=== PATIENT | female | born 1960 | race Caucasian/White ===

== ENCOUNTER 2024-10-17 10:18 | Day surgery (SDC) | payer MEDICARE, OTHER ==
--- NOTE | 2024-10-17 07:35 | P.GSHP ---
History of Present Illness H&P Date: 10/17/24 Chief Complaint: Renal failure 64-year-old female here for peritoneal dialysis catheter insertion. She was actually last seen in October of last year. Patient has had further decline in her kidney function and requires dialysis at this time. Previous laparoscopic cholecystectomy. No known hernias. Past Medical History Past Medical History: Cancer, CVA/TIA, GERD/Reflux, Hyperlipidemia, Hypertension, Renal Disease, Seizure Disorder, Sleep Apnea/CPAP/BIPAP, Thyroid Disorder Additional Past Medical History / Comment(s): stage 4, kidney disease,. basal cell removed from left ear. stroke 2013- lost peripheral vision. siezure- with illness( vomiting diarrhea) long ago, one time- no meds.wears cpap History of Any Multi-Drug Resistant Organisms: None Reported Past Surgical History: Cholecystectomy Additional Past Surgical History / Comment(s): cataracts removed, repair fx rt wrist. pituatary adenoma removed. Past Anesthesia/Blood Transfusion Reactions: No Reported Reaction Smoking Status: Never smoker - Past Family History Father Family Medical History: COPD Brother(s) Family Medical History: Cancer Additional Family Medical History / Comment(s): leukemia Medications and Allergies Home Medications Medication Instructions Recorded Confirmed Type Areds 2 Eye Vitamin 1 tab PO DAILY 10/15/24 10/15/24 History Atorvastatin [Lipitor] 40 mg PO HS 10/15/24 10/15/24 History Calcium Acetate 667 mg PO DAILY 10/15/24 10/15/24 History Citalopram Hydrobromide 40 mg PO DAILY 10/15/24 10/15/24 History [Citalopram HBr] Clopidogrel Bisulfate [Clopidogrel] 75 mg PO DAILY 10/15/24 10/16/24 History Darbepoetin Juvencio [Aranesp] 100 mcg SQ Q14D 10/15/24 10/15/24 History Dialyvite 800 mg PO DAILY 10/15/24 10/15/24 History Ergocalciferol [Vitamin D2 (1250 1,250 mcg PO Q30D 10/15/24 10/15/24 History Mcg = 73345 Iu)] Famotidine 20 mg PO HS PRN 10/15/24 10/15/24 History Febuxostat [Uloric] 40 mg PO DAILY 10/15/24 10/15/24 History Ketorolac 0.5% Ophth Soln [Acular 1 drops RIGHT EYE BID 10/15/24 10/15/24 History 0.5%] Levothyroxine Sodium 88 mcg PO DAILY 10/15/24 10/15/24 History NIFEdipine [Adalat CC] 30 mg PO BID 10/15/24 10/15/24 History Prednisolone Acetate/Pf 1 drop RIGHT EYE BID 10/15/24 10/15/24 History [Prednisolone Acet 1% Eye Drop] Sodium Bicarbonate Tab 650 mg PO BID 10/15/24 10/15/24 History Sodium Zirconium Cyclosilicate 10 gm PO DIRECTED 10/15/24 10/15/24 History [Lokelma] Unk Iron 1 tab PO DIRECTED 10/15/24 10/15/24 History calcitrioL 0.25 mcg PO Q3D 10/15/24 10/15/24 History carvediloL [Coreg] 6.25 mg PO BID 10/15/24 10/15/24 History Allergies Allergy/AdvReac Type Severity Reaction Status Date / Time azathioprine [From Imuran] AdvReac diarrhea, Verified 10/15/24 12:27 wiped her out mycophenolate mofetil AdvReac diarrhea, Verified 10/15/24 12:27 [From CellCept] wiped out Surgical - Exam Physical exam: General: Well-developed, well-nourished HEENT: Normocephalic, sclerae nonicteric Abdomen: Nontender, nondistended Extremities: No edema Neuro: Alert and oriented Assessment and Plan (1) Renal failure Narrative/Plan: 64-year-old female with renal failure. Will proceed with peritoneal dialysis catheter insertion. Risks of bleeding, infection, scarring, poor function, peritonitis, bowel injury, fluid leak, hernia reviewed. She understands and wishes to proceed. Status: Acute Code(s): N19 - UNSPECIFIED KIDNEY FAILURE SNOMED Code(s): 07997355
[~2024-10-17 10:18] MED LIST: LACTATED RINGERS 1,000 ML IV SCH; MIDAZOLAM 2 MG/2 ML VIAL IV PRN; SCOPOLAMINE 1 MG/72 HR PATCH TRANSDERM ONE
[2024-10-17] MEDS: IV FLUID CONTINUATION 500 ML IV ONE (10:36)
[2024-10-17] MEDS: ACETAMINOPHEN TAB 500 MG TAB PO PRN (10:55)
[2024-10-17] MEDS: ONDANSETRON 4 MG/2 ML VIAL IVP ONE (10:55)
[2024-10-17] MEDS: HEPARIN SODIUM,PORCINE 5,000 UNIT/ML 1 ML VIAL SQ PRN (10:56)
[2024-10-17] MEDS: DEXAMETHASONE SOD PHOSPHATE 4 MG/ML 1 ML VIAL IV ONE (10:56)
[2024-10-17] MEDS: LIDOCAINE 1% (10MG/ML) FOR IV START INTRADERMA PRN (10:56)
[2024-10-17] MEDS ORDERED: MIDAZOLAM 2 MG/2 ML VIAL ONE (11:00)
[2024-10-17] MEDS ORDERED: GLYCOPYRROLATE 0.2 MG/ML 2 ML VIAL ONE (11:00)
[2024-10-17] MEDS ORDERED: NEOSTIGMINE 1 MG/ML 10 ML VIAL ONE (11:00)
[2024-10-17] MEDS ORDERED: LIDOCAINE 1% INJ 10MG/ML (20 ML MDV) ONE (11:00)
[2024-10-17] MEDS ORDERED: fentaNYL (PF) 50 MCG/ML 2 ML AMP ONE (11:00)
[2024-10-17] MEDS ORDERED: ROCURONIUM 10 MG/ML (5 ML VIAL) IV ONE (11:00)
[2024-10-17] MEDS ORDERED: PROPOFOL 10 MG/ML 20 ML VIAL IV ONE (11:00)
[2024-10-17 11:05] LABS: HCT 34.8 % (37.2-46.3); HGB 11.2 g/dL (12.0-15.0); MCH 26.5 pg (27.0-32.0); MCHC 32.2 g/dL (32.0-37.0); MCV 82.5 fL (80.0-97.0); Mean Platelet Volume 9.7 fL (9.5-12.2); Platelet Count 203 10*3/uL (140-440); RBC 4.22 10*6/uL (4.10-5.20); RDW 17.4 % (11.5-14.5)
[2024-10-17] MEDS: ceFAZolin 2 GM in DEXTROSE 5% IN WATER 50 ML IVPB PRN (11:05)
[2024-10-17] MEDS: BUPIVACAINE (PF) 0.25% 30 ML VIAL SQ ONE ×2 (11:25)
[2024-10-17] MEDS ORDERED: NALOXONE 0.4 MG/ML 1 ML VIAL IV PRN (11:54)
[2024-10-17] MEDS ORDERED: ACETAMINOPHEN TAB 325 MG TAB PO PRN (11:54)
--- NOTE | 2024-10-17 11:57 | P.OP ---
Date of Procedure: 10/17/24 Procedure(s) Performed: PREOPERATIVE DIAGNOSIS: Renal failure POSTOPERATIVE DIAGNOSIS: Same PROCEDURE: Peritoneal dialysis catheter insertion SURGEON: Federica EBL: Minimal ANESTHESIA: Sedation plus local COMPLICATIONS: None OPERATIVE PROCEDURE: The patient was placed in the operative table in the supine position. The abdomen was prepped and draped in usual sterile fashion. A small vertical incision was made in the left periumbilical location. Dissection down through the subcutaneous tissues took place using electrocautery. The anterior rectus was divided vertically using the scalpel. The rectus was bluntly. The posterior rectus was visualized. An 0 Vicryl pursestring was placed. A small opening in the posterior rectus fascia and peritoneum took place using a Metzenbaum scissors. There were no adhesions to the suture that was placed. The pigtail catheter was advanced into the pelvis over a stylette. No resistance was met. The inner cuff was secured to the fascia using the 0 Vicryl pursestring that was placed. The catheter was tunneled to an exit site in the left lateral lower quadrant. The catheter was connected to the 1 L bag of saline and approximated 800 mL of saline was easily introduced into the peritoneal cavity. The fluid was then allowed to evacuate. The majority of the fluid was returned. The anterior rectus fascia was then reapproximated using a running 0 Vicryl stitch. The subcutaneous tissues reprepped using 3-0 Vicryl sutures and the skin using 4-0 Monocryl sutures. The outpatient dialysis adapter was applied to the end of the catheter. Sterile dressings were then applied after skin glue was placed over the incision. DISPOSITION: Stable to recovery room
[2024-10-17 12:05] VITALS: TEMP 97.1
[2024-10-17 12:16] VITALS: RESP 16
[2024-10-17] MEDS: HYDROmorphone 0.5 MG/0.5 ML SYRINGE IVP PRN (12:23)
[2024-10-17] MEDS: traMADol 50 MG TAB PO PRN (13:09)
[2024-10-17 14:15] VITALS: BP 178/84; PULSE 64
== END 2024-10-17 14:41 | disposition home or self-care (01) ==
LOC: OR 10:18
PROVIDERS: ATTEND Surgery
DX: N17.9 Acute kidney failure, unspecified (principal); I10 Essential (primary) hypertension; E78.5 Hyperlipidemia, unspecified; G47.33 Obstructive sleep apnea (adult) (pediatric); G40.909 Epilepsy, unspecified, not intractable, without status epilepticus; Z86.73 Personal history of transient ischemic attack (TIA), and cerebral infarction without residual deficits; Z90.49 Acquired absence of other specified parts of digestive tract; Z99.2 Dependence on renal dialysis; Z88.8 Allergy status to other drugs, medicaments and biological substances; Z79.02 Long term (current) use of antithrombotics/antiplatelets; Z79.1 Long term (current) use of non-steroidal anti-inflammatories (NSAID); Z79.890 Hormone replacement therapy; Z79.899 Other long term (current) drug therapy
CPT/HCPCS: 85027; 49421; C1752; J2250; J1644; J1100; J2710; J0690; J2405; J2003; J3010; J2704; J1171; J0665; J1596

== ENCOUNTER 2024-10-18 16:33 | Observation (INO) | payer MEDICARE ==
--- NOTE | 2024-10-18 17:33 | ED ---
Recheck HPI - General Chief Complaint: Recheck/Abnormal Lab/Rx Stated Complaint: Dialysis port issues Time Seen by Provider: 10/18/24 16:46 Source: patient, RN notes reviewed, old records reviewed Mode of arrival: ambulatory Limitations: no limitations - History of Present Illness Initial Comments: This is a 64 female excepted in transfer from outside facility patient was transferred to us for bleeding port, patient recently had peritoneal dialysis po rt placed and has had significant bleeding since initial discharge. Patient states he has not stopped bleeding since discharge and has been leaking through bandage on her pants and getting significantly worse. Patient is on Plavix no other blood thinners. No symptoms of lightheadedness dizziness or weakness MD Complaint: wound re-check -: days(s) Returns Today for: wound recheck Symptoms Since Prior Visit: no new symptoms Context: planned re-check Associated Symptoms: none Treatments Prior to Arrival: dressings, other - Related Data Home Medications Medication Instructions Recorded Confirmed Atorvastatin [Lipitor] 40 mg PO HS 10/15/24 10/18/24 Calcium Acetate 667 mg PO W/SUPPER 10/15/24 10/18/24 Citalopram Hydrobromide 40 mg PO DAILY 10/15/24 10/18/24 [Citalopram HBr] Clopidogrel Bisulfate [Clopidogrel] 75 mg PO DAILY 10/15/24 10/18/24 Darbepoetin Juvencio [Aranesp] 100 mcg SQ Q14D PRN 10/15/24 10/18/24 Dialyvite 800 mg PO DAILY 10/15/24 10/18/24 Ergocalciferol [Vitamin D2 (1250 1,250 mcg PO Q30D 10/15/24 10/18/24 Mcg = 00851 Iu)] Famotidine 20 mg PO HS 10/15/24 10/18/24 Febuxostat [Uloric] 40 mg PO DAILY 10/15/24 10/18/24 Ketorolac 0.5% Ophth Soln [Acular 1 drops RIGHT EYE BID 10/15/24 10/18/24 0.5%] Levothyroxine Sodium 88 mcg PO MOTUWETHFRSA 10/15/24 10/18/24 NIFEdipine [Adalat CC] 30 mg PO BID 10/15/24 10/18/24 Prednisolone Acetate/Pf 1 drop RIGHT EYE BID 10/15/24 10/18/24 [Prednisolone Acet 1% Eye Drop] Sodium Bicarbonate Tab 650 mg PO BID 10/15/24 10/18/24 Sodium Zirconium Cyclosilicate 10 gm PO DAILY 10/15/24 10/18/24 [Lokelma] calcitrioL 0.25 mcg PO MOFR 10/15/24 10/18/24 carvediloL [Coreg] 6.25 mg PO BID 10/15/24 10/18/24 Levothyroxine Sodium [Synthroid] 176 mcg PO BERRIOS 10/18/24 10/18/24 Vit C/E/Zn/Coppr/Lutein/Zeaxan 1 cap PO BID 10/18/24 10/18/24 [Preservision Areds 2 Softgel] traMADol HCl [Ultram] 50 mg PO DIRECTED PRN 10/18/24 10/18/24 Allergies Allergy/AdvReac Type Severity Reaction Status Date / Time azathioprine [From Imuran] AdvReac diarrhea, Verified 10/18/24 18:18 wiped her out mycophenolate mofetil AdvReac diarrhea, Verified 10/18/24 18:18 [From CellCept] wiped out Review of Systems ROS Statement: Those systems with pertinent positive or pertinent negative responses have been documented in the HPI. ROS Other: All systems not noted in ROS Statement are negative. Past Medical History Past Medical History: Cancer, CVA/TIA, GERD/Reflux, Hyperlipidemia, Hypertension, Renal Disease, Seizure Disorder, Sleep Apnea/CPAP/BIPAP, Thyroid Disorder Additional Past Medical History / Comment(s): stage 4, kidney disease,. basal cell removed from left ear. stroke 2013- lost peripheral vision. siezure- with illness( vomiting diarrhea) long ago, one time- no meds.wears cpap History of Any Multi-Drug Resistant Organisms: None Reported Past Surgical History: Cholecystectomy Additional Past Surgical History / Comment(s): cataracts removed, repair fx rt wrist. pituatary adenoma removed. Past Anesthesia/Blood Transfusion Reactions: No Reported Reaction Past Psychological History: Depression Smoking Status: Never smoker Past Alcohol Use History: None Reported Past Drug Use History: None Reported - Past Family History Father Family Medical History: COPD Brother(s) Family Medical History: Cancer Additional Family Medical History / Comment(s): leukemia General Exam Limitations: no limitations General appearance: alert, in no apparent distress Head exam: Present: atraumatic, normocephalic, normal inspection Eye exam: Present: normal appearance, PERRL, EOMI. Absent: scleral icterus, conjunctival injection, periorbital swelling ENT exam: Present: normal exam, mucous membranes moist Neck exam: Present: normal inspection. Absent: tenderness, meningismus, lymphadenopathy Respiratory exam: Present: normal lung sounds bilaterally. Absent: respiratory distress, wheezes, rales, rhonchi, stridor Cardiovascular Exam: Present: regular rate, normal rhythm, normal heart sounds. Absent: systolic murmur, diastolic murmur, rubs, gallop, clicks GI/Abdominal exam: Present: soft, normal bowel sounds. Absent: distended, tenderness, guarding, rebound, rigid Extremities exam: Present: normal inspection, full ROM, normal capillary refill. Absent: tenderness, pedal edema, joint swelling, calf tenderness Back exam: Present: normal inspection Neurological exam: Present: alert, oriented X3, CN II-XII intact Psychiatric exam: Present: normal affect, normal mood Skin exam: Present: warm, dry, intact, normal color. Absent: rash Course Vital Signs 10/18/24 16:36 Temperature 97.8 F Pulse Rate 72 Respiratory 18 Rate Blood Pressure 129/71 O2 Sat by Pulse 99 Oximetry - Reevaluation(s) Reevaluation #1: 10/18/24 19:53 Medical records reviewed Reevaluation #2: 10/18/24 19:53 Banding is changed with persistent leaking from surgical site Reevaluation #3: 10/18/24 19:53 Patient informed of results questions answered Reevaluation #4: Was pt. sent in by a medical professional or institution (, PA, LIQUEFIED NATURAL GAS OPERATOR, urgent care, hospital, or [place] health care facility...) When possible be specific @ -no Did you speak to anyone other than the patient for history (EMS, parent, family, police, friend...)? What history was obtained from this source @ -no Did you review nursing and triage notes (agree or disagree)? Why? @ -agree Are old charts reviewed (outside hosp., previous admission, EMS record, old EKG, old radiological studies, urgent care reports/EKG's, [place] health care facility records)? Report findings @ -yes Differential Diagnosis (chest pain, altered mental status, abdominal pain women, abdominal pain men, vaginal bleeding, weakness, fever, dyspnea, syncope, headache, dizziness, GI bleed, back pain, seizure, CVA, palpatations, mental he alth, musculoskeletal)? @ -prior EKG interpreted by me (3pts min.). @ -yes X-rays interpreted by me (1pt min.). @ -yes negative for acute disease CT interpreted by me (1pt min.). @ -no U/S interpreted by me (1pt. min.). @ -no What testing was considered but not performed or refused? (CT, X-rays, U/S, labs)? Why? @ -none What meds were considered but not given or refused? Why? @ -none Did you discuss the management of the patient with other professionals (professionals i.e. , PA, LIQUEFIED NATURAL GAS OPERATOR, lab, RT, psych nurse, web content & social media manager, voip engineer, teacher, compliance review officer, human services case manager)? Give summary @ -no Was smoking cessation discussed for >3mins.? @ -no Was critical care preformed (if so, how long)? @ -no Were there social determinants of health that impacted care today? How? (Homelessness, low income, unemployed, alcoholism, drug addiction, transportation, low edu. Level, literacy, decrease access to med. care, residential, rehab)? @ -none Was there de-escalation of care discussed even if they declined (Discuss DNR or withdrawal of care, Hospice)? DNR status @ -no What co-morbidities impacted this encounter? (DM, HTN, Smoking, COPD, CAD, Cancer, CVA, ARF, Chemo, Hep., AIDS, mental health diagnosis, sleep apnea, morbid obesity)? @ -none Was patient admitted / discharged? Hospital course, mention meds given and route, prescriptions, significant lab abnormalities, going to OR and other pe rtinent info. @ - Undiagnosed new problem with uncertain prognosis? @ -no Drug Therapy requiring intensive monitoring for toxicity (Heparin, Nitro, Insulin, Cardizem)? @ -no Were any procedures done? @ -no Diagnosis/symptom? @ - Acute, or Chronic, or Acute on Chronic? @ -Acute Uncomplicated (without systemic symptoms) or Complicated (systemic symptoms)? @ -Complicated Side effects of treatment? @ -no Exacerbation, Progression, or Severe Exacerbation? @ -exacerbation Poses a threat to life or bodily function? How? (Chest pain, USA, CT, pneumonia, PE, COPD, DKA, ARF, appy, cholecystitis, CVA, Diverticulitis, Homicidal, Suicidal, threat to staff... and all critical care pts) @ -yes - Consultations Consultation #1: Spoke with [facility] who agrees to admit this patient Medical Decision Making - Medical Decision Making 64 female will be admitted for postoperative bleeding, dressing bandaged and clean, hemoglobin able for patient's normal - Lab Data Result diagrams: 10/18/24 18:42 10/18/24 18:42 Disposition Clinical Impression: Postoperative complication Disposition: ADMITTED IP TO THIS [facility] Condition: Fair Is patient prescribed a controlled substance at d/c from ED?: No Time of Disposition: 18:00
[2024-10-18] MEDS ORDERED: NALOXONE 0.4 MG/ML 1 ML VIAL IV PRN (18:18)
[2024-10-18] MEDS ORDERED: MORPHINE SULFATE 4 MG/ML SYRINGE IV PRN (18:18)
[2024-10-18] MEDS ORDERED: ONDANSETRON 4 MG/2 ML VIAL IVP PRN (18:18)
[2024-10-18] MEDS: SODIUM CHLORIDE 0.9% 1,000 ML IV SCH (18:46)
[2024-10-18 18:54] LABS: Basophils # (A) 0.03 10*3/uL (0.00-0.10); Basophils % (A) 0.3 %; Eosinophils # (A) 0.07 10*3/uL (0.04-0.35); Eosinophils % (A) 0.6 %; HCT 35.4 % (37.2-46.3); HGB 11.2 g/dL (12.0-15.0); Lymphocytes # (A) 1.59 10*3/uL (0.90-5.00); MCHC 31.6 g/dL (32.0-37.0); MCV 82.3 fL (80.0-97.0); Mean Platelet Volume 9.4 fL (9.5-12.2); Monocytes # (A) 1.01 10*3/uL (0.20-1.00); Monocytes % (A) 8.9 %; Neutrophils # (A) 8.63 10*3/uL (1.80-7.70); Neutrophils % (A) 75.9 %; Platelet Count 211 10*3/uL (140-440); RDW 17.7 % (11.5-14.5); WBC 11.36 10*3/uL (4.50-10.00)
[2024-10-18 19:09] LABS: Prothrombin Time 11.2 sec (10.0-12.5)
[2024-10-18 19:10] LABS: Partial Thromboplastin Time 21.2 sec (22.0-30.0)
[2024-10-18 19:11] LABS: ALT 14 U/L (4-34); AST 32 U/L (14-36); African American GFR (CKD) 12 (>60 ml/min/1.73 sqM); Albumin 4.2 g/dL (3.5-5.0); Albumin/Globulin Ratio 1.7; Alkaline Phosphatase 60 U/L (38-126); Anion Gap 15 mmol/L; Calcium 10.1 mg/dL (8.4-10.2); Carbon Dioxide 19 mmol/L (22-30); Chloride 105 mmol/L (98-107); Globulin 2.5 g/dL; Glucose 102 mg/dL (74-99); Magnesium 2.4 mg/dL (1.6-2.3); Non-African American GFR(CKD) 11 (>60 ml/min/1.73 sqM); Phosphorus 6.9 mg/dL (2.5-4.5); Potassium 4.7 mmol/L (3.5-5.1); Sodium 139 mmol/L (137-145); Total Bilirubin 0.3 mg/dL (0.2-1.3); Total Protein 6.7 g/dL (6.3-8.2)
[2024-10-18 19:12] LABS: Blood Urea Nitrogen 114 mg/dL (7-17)
[2024-10-19 09:55] LABS: HCT 32.4 % (37.2-46.3); HGB 9.7 g/dL (12.0-15.0); MCH 25.5 pg (27.0-32.0); MCHC 29.9 g/dL (32.0-37.0); MCV 85.3 FL (80.0-97.0); Mean Platelet Volume 10.4 FL (9.5-12.2); NRBC Per 100 WBC 0 X 10*3/uL (0.00-0.01); Platelet Count 192 X 10*3/uL (140-440); RDW 18.1 % (11.5-14.5); WBC 12.23 X 10*3/uL (4.50-10.00)
[2024-10-19 09:56] LABS: Basophils # (A) 0.03 X 10*3/uL (0.00-0.10); Basophils % (A) 0.2 %; Eosinophils # (A) 0.22 X 10*3/uL (0.04-0.35); Eosinophils % (A) 1.8 %; Lymphocytes % (A) 14.7 %; Monocytes # (A) 1.17 X 10*3/uL (0.20-1.00); Monocytes % (A) 9.6 %; Neutrophils # (A) 8.96 X 10*3/uL (1.80-7.70); Neutrophils % (A) 73.3 %
[2024-10-19 09:59] LABS: ALT 11 U/L (8-44); AST 25 U/L (13-35); Albumin 3.8 g/dL (3.8-4.9); Alkaline Phosphatase 51 U/L (41-126); BUN/Creat Ratio 25.12 Ratio (12.00-20.00); Calcium 9.2 mg/dL (8.7-10.3); Carbon Dioxide 17.2 mmol/L (21.6-31.8); Chloride 109 mmol/L (96-109); Globulin 1.9 g/dL (1.6-3.3); Glucose 83 mg/dL (70-110); Magnesium 2.2 mg/dL (1.5-2.4); Phosphorus 5.7 mg/dL (2.4-5.1); Potassium 5.1 mmol/L (3.5-5.5); Sodium 141 mmol/L (135-145); Total Bilirubin <0.2 mg/dL (0.3-1.2); Total Protein 5.7 g/dL (6.2-8.2)
--- NOTE | 2024-10-19 12:01 | P.GSCN ---
History of Present Illness Consult date: 10/19/24 Reason for Consult: Fluid leak from peritoneal dialysis catheter History of present illness: Patient apparently came in through the ER last night. I was not notified until this morning. Patient had issues with serosanguineous drainage around the catheter exit site getting through the bandage onto her clothing. Feels well today. Less drainage over night. No fevers. Catheter was just placed on Sunday. Review of Systems The patient denies any acute changes in vision or hearing, no dysphagia or odynophagia, no chest pain or shortness of breath, no dysuria or hematuria, no headache, no runny nose, no rectal bleeding or melena, no unexplained weight loss Past Medical History Past Medical History: Cancer, CVA/TIA, GERD/Reflux, Hyperlipidemia, Hypertension, Renal Disease, Seizure Disorder, Sleep Apnea/CPAP/BIPAP, Thyroid Disorder Additional Past Medical History / Comment(s): stage 4, kidney disease,. basal cell removed from left ear. stroke 2013- lost peripheral vision. siezure- with illness( vomiting diarrhea) long ago, one time- no meds.wears cpap History of Any Multi-Drug Resistant Organisms: None Reported Past Surgical History: Cholecystectomy Additional Past Surgical History / Comment(s): cataracts removed, repair fx rt wrist. pituatary adenoma removed. Past Anesthesia/Blood Transfusion Reactions: No Reported Reaction Past Psychological History: Depression Smoking Status: Never smoker Past Alcohol Use History: None Reported Past Drug Use History: None Reported - Past Family History Father Family Medical History: COPD Brother(s) Family Medical History: Cancer Additional Family Medical History / Comment(s): leukemia Medications and Allergies Home Medications Medication Instructions Recorded Confirmed Type Atorvastatin [Lipitor] 40 mg PO HS 10/15/24 10/18/24 History Calcium Acetate 667 mg PO W/SUPPER 10/15/24 10/18/24 History Citalopram Hydrobromide 40 mg PO DAILY 10/15/24 10/18/24 History [Citalopram HBr] Clopidogrel Bisulfate [Clopidogrel] 75 mg PO DAILY 10/15/24 10/18/24 History Darbepoetin Juvencio [Aranesp] 100 mcg SQ Q14D PRN 10/15/24 10/18/24 History Dialyvite 800 mg PO DAILY 10/15/24 10/18/24 History Ergocalciferol [Vitamin D2 (1250 1,250 mcg PO Q30D 10/15/24 10/18/24 History Mcg = 09164 Iu)] Famotidine 20 mg PO HS 10/15/24 10/18/24 History Febuxostat [Uloric] 40 mg PO DAILY 10/15/24 10/18/24 History Ketorolac 0.5% Ophth Soln [Acular 1 drops RIGHT EYE BID 10/15/24 10/18/24 History 0.5%] Levothyroxine Sodium 88 mcg PO MOTUWETHFRSA 10/15/24 10/18/24 History NIFEdipine [Adalat CC] 30 mg PO BID 10/15/24 10/18/24 History Prednisolone Acetate/Pf 1 drop RIGHT EYE BID 10/15/24 10/18/24 History [Prednisolone Acet 1% Eye Drop] Sodium Bicarbonate Tab 650 mg PO BID 10/15/24 10/18/24 History Sodium Zirconium Cyclosilicate 10 gm PO DAILY 10/15/24 10/18/24 History [Lokelma] calcitrioL 0.25 mcg PO MOFR 10/15/24 10/18/24 History carvediloL [Coreg] 6.25 mg PO BID 10/15/24 10/18/24 History Levothyroxine Sodium [Synthroid] 176 mcg PO BERRIOS 10/18/24 10/18/24 History Vit C/E/Zn/Coppr/Lutein/Zeaxan 1 cap PO BID 10/18/24 10/18/24 History [Preservision Areds 2 Softgel] traMADol HCl [Ultram] 50 mg PO DIRECTED PRN 10/18/24 10/18/24 History Allergies Allergy/AdvReac Type Severity Reaction Status Date / Time azathioprine [From Imuran] AdvReac diarrhea, Verified 10/18/24 18:18 wiped her out mycophenolate mofetil AdvReac diarrhea, Verified 10/18/24 18:18 [From CellCept] wiped out Surgical - Exam Vital Signs Temp Pulse Resp BP Pulse Ox 97.8 F 72 18 129/71 99 10/18/24 16:36 10/18/24 16:36 10/18/24 16:36 10/18/24 16:36 10/18/24 16:36 Physical exam: General: Well-developed, well-nourished HEENT: Normocephalic, sclerae nonicteric Abdomen: Mild numbness at incision site and catheter exit site, no erythema, small serosanguineous drainage around catheter exit site, no ecchymosis Extremities: No edema Neuro: Alert and oriented Results - Labs 10/19/24 03:12 10/19/24 03:12 Abnormal Lab Results - Last 24 Hours (Table) 10/18/24 10/18/24 10/18/24 Range/Units 18:42 18:42 18:45 WBC 11.36 H (4.50-10.00) 10*3/uL RBC (4.10-5.20) X 10*6/uL Hgb 11.2 L (12.0-15.0) g/dL Hct 35.4 L (37.2-46.3) % MCH 26.0 L (27.0-32.0) pg MCHC 31.6 L (32.0-37.0) g/dL RDW 17.7 H (11.5-14.5) % MPV 9.4 L (9.5-12.2) fL Immature Gran # (0.00-0.04) X 10*3/uL Neutrophils # 8.63 H (1.80-7.70) 10*3/uL Monocytes # 1.01 H (0.20-1.00) 10*3/uL APTT 21.2 L (22.0-30.0) sec Carbon Dioxide 19 L (22-30) mmol/L Anion Gap (4.00-12.00) mmol/L BUN 114 H* (7-17) mg/dL Creatinine 4.25 H (0.52-1.04) mg/dL Est GFR (CKD-EPI) (>=60) BUN/Creatinine Ratio (12.00-20.00) Ratio Glucose 102 H (74-99) mg/dL Phosphorus 6.9 H (2.5-4.5) mg/dL Magnesium 2.4 H (1.6-2.3) mg/dL Total Bilirubin (0.3-1.2) mg/dL Total Protein (6.2-8.2) g/dL 10/19/24 10/19/24 Range/Units 03:12 03:12 WBC 12.23 H (4.50-10.00) 10*3/uL RBC 3.80 L (4.10-5.20) X 10*6/uL Hgb 9.7 L (12.0-15.0) g/dL Hct 32.4 L (37.2-46.3) % MCH 25.5 L (27.0-32.0) pg MCHC 29.9 L (32.0-37.0) g/dL RDW 18.1 H (11.5-14.5) % MPV (9.5-12.2) fL Immature Gran # 0.05 H (0.00-0.04) X 10*3/uL Neutrophils # 8.96 H (1.80-7.70) 10*3/uL Monocytes # 1.17 H (0.20-1.00) 10*3/uL APTT (22.0-30.0) sec Carbon Dioxide 17.2 L (22-30) mmol/L Anion Gap 14.80 H (4.00-12.00) mmol/L BUN 108.0 H (7-17) mg/dL Creatinine 4.3 H (0.52-1.04) mg/dL Est GFR (CKD-EPI) 11 L (>=60) BUN/Creatinine Ratio 25.12 H (12.00-20.00) Ratio Glucose (74-99) mg/dL Phosphorus 5.7 H (2.5-4.5) mg/dL Magnesium (1.6-2.3) mg/dL Total Bilirubin <0.2 L (0.3-1.2) mg/dL Total Protein 5.7 L (6.2-8.2) g/dL Diabetes panel 10/18/24 10/19/24 Range/Units 18:42 03:12 Sodium 139 141 (137-145) mmol/L Potassium 4.7 5.1 (3.5-5.1) mmol/L Chloride 105 109 (98-107) mmol/L Carbon Dioxide 19 L 17.2 L (22-30) mmol/L BUN 114 H* 108.0 H (7-17) mg/dL Creatinine 4.25 H 4.3 H (0.52-1.04) mg/dL Glucose 102 H 83 (74-99) mg/dL Calcium 10.1 9.2 (8.4-10.2) mg/dL AST 32 25 (14-36) U/L ALT 14 11 (4-34) U/L Alkaline Phosphatase 60 51 (38-126) U/L Total Protein 6.7 5.7 L (6.3-8.2) g/dL Albumin 4.2 3.8 (3.5-5.0) g/dL Calcium panel 10/18/24 10/19/24 Range/Units 18:42 03:12 Calcium 10.1 9.2 (8.4-10.2) mg/dL Phosphorus 6.9 H 5.7 H (2.5-4.5) mg/dL Albumin 4.2 3.8 (3.5-5.0) g/dL Pituitary panel 10/18/24 10/19/24 Range/Units 18:42 03:12 Sodium 139 141 (137-145) mmol/L Potassium 4.7 5.1 (3.5-5.1) mmol/L Chloride 105 109 (98-107) mmol/L Carbon Dioxide 19 L 17.2 L (22-30) mmol/L BUN 114 H* 108.0 H (7-17) mg/dL Creatinine 4.25 H 4.3 H (0.52-1.04) mg/dL Glucose 102 H 83 (74-99) mg/dL Calcium 10.1 9.2 (8.4-10.2) mg/dL Adrenal panel 10/18/24 10/19/24 Range/Units 18:42 03:12 Sodium 139 141 (137-145) mmol/L Potassium 4.7 5.1 (3.5-5.1) mmol/L Chloride 105 109 (98-107) mmol/L Carbon Dioxide 19 L 17.2 L (22-30) mmol/L BUN 114 H* 108.0 H (7-17) mg/dL Creatinine 4.25 H 4.3 H (0.52-1.04) mg/dL Glucose 102 H 83 (74-99) mg/dL Calcium 10.1 9.2 (8.4-10.2) mg/dL Total Bilirubin 0.3 <0.2 L (0.2-1.3) mg/dL AST 32 25 (14-36) U/L ALT 14 11 (4-34) U/L Alkaline Phosphatase 60 51 (38-126) U/L Total Protein 6.7 5.7 L (6.3-8.2) g/dL Albumin 4.2 3.8 (3.5-5.0) g/dL Assessment and Plan (1) Renal failure Narrative/Plan: 64-year-old female with peritoneal dialysis fluid leakage around catheter exit site. This is likely mostly related to intraperitoneal saline that was used at the time of surgery not having fully evacuated and now coming along the catheter tract. Continue changing dressings as needed. This was replaced at the bedside. If patient doing well later today with minimal drainage would be okay with discharge. Otherwise we will reassess tomorrow. Current Visit: No Status: Acute Code(s): N19 - UNSPECIFIED KIDNEY FAILURE SNOMED Code(s): 89917813
[2024-10-19] MEDS: KETOROLAC 0.5% OPHTH DROPS 5 ML BTL RIGHT EYE SCH (12:55)
[2024-10-19] MEDS: SODIUM ZIRCONIUM CYCLOSILICATE 10 GM PACKET PO SCH (12:55)
[2024-10-19] MEDS: prednisoLONE ACETATE 1% OPHTH DROPS 5 ML BTL RIGHT EYE SCH (12:55)
[2024-10-19] MEDS: CITALOPRAM HYDROBROMIDE 20 MG TAB PO SCH (12:56)
[2024-10-19] MEDS: LEVOTHYROXINE 88 MCG TAB PO SCH (12:56)
[2024-10-19] MEDS: SODIUM BICARBONATE TAB 650 MG TAB PO SCH (12:56)
[2024-10-19] MEDS: allopurinoL 100 MG TAB PO SCH (12:56)
[2024-10-19] MEDS: NIFEdipine XL 30 MG TAB.ER.24 PO SCH (12:57)
[2024-10-19] MEDS: carvediloL 6.25 MG TAB PO SCH (12:57)
[2024-10-19] MEDS: CALCIUM ACETATE 667 MG TAB PO SCH (16:38)
--- NOTE | 2024-10-19 20:15 | P.HPIM ---
History of Present Illness H&P Date: 10/19/24 Chief Complaint: Bleeding from the PD catheter site Very pleasant 64-year-old patient who follows with Dr. Roderick Lynn. Chronic medical conditions include GERD, hyperlipidemia, hypertension, chronic kidney disease, seizure disorder, obstructive sleep apnea, hypothyroid. Had a stroke in 2013 and lost peripheral vision. Does wear CPAP. On October 17 patient underwent peritoneal dialysis catheter placement with Dr. Stallworth.. This was on a Sunday. The following day she started noticing blood oozing around the site. Finally decided to come in. Initially encountered [facility]. Did lose some significant amount of blood. Earlier today Dr. Stallworth put a new dressing and a binder across. Denies any dizziness lightheadedness. Appetite is fair. Does make urine. Review of systems: GEN.: Slightly tired EYES: None HEENT: None NECK: None RESPIRATORY: None CARDIOVASCULAR: None GASTROINTESTINAL: None GENITOURINARY: None MUSCULOSKELETAL: Some joint pains LYMPHATICS: None HEMATOLOGICAL: As above e PSYCHIATRY: None NEUROLOGICAL: None Social history: Non-smoker. No alcohol. . Lives alone Physical examination: VITAL SIGNS: 98.6, 77, 14, 171 x 77, 98% room air GENERAL: BMI 26.1, sitting up in chair awake not in distress. EYES: Pupils equal. Conjunctiva whitney l. HEENT: External appearance of nose and ears normal, oral cavity grossly normal. NECK: JVD not raised; masses not palpable. HEART: First and second heart sounds are normal; no edema. LUNGS: Respiratory rate normal; clear to auscultation. ABDOMEN: [Dressing at the PD catheter site. With the binder in place. PSYCH: Alert and oriented x3; mood and affect whitney l. MUSCULOSKELETAL:No Clubbing/cyanosis;muscles-grossly intact. OA NEUROLOGICAL: Cranial nerves grossly intact; no facial asymmetry, power and sensation grossly intact. LYMPHATICS: No lymph nodes palpable in the axilla and neck INVESTIGATIONS, reviewed in the clinical context: October 19, 2024: White count 12.2 hemoglobin 9.7 platelets 192 sodium 141 potassium 5.1 BUN 108 creatinine 4.3 October 18: Hemoglobin 11.2 platelets 211 October 17: Hemoglobin 11.2 Assessment plan: - Acute bleeding locally at the site of peritoneal dialysis catheter that was placed on October [address] Stallworth. Note patient is on Coumadin but her INR was only 1. Pressure dressing around the PD catheter site. With abdominal binder per Dr. Stallworth. - Acute blood loss anemia from PD catheter site. Hemoglobin was 11.2 dropped to 9.7. IV iron. Follow H&H - CKD stage IV - Essential hypertension Coreg nifedipine - Depression Celexa 40 mg a day - Hypothyroid Synthroid - Chronic metabolic acidosis from underlying kidney disease Sodium bicarbonate - Hyperlipidemia Lipitor - Obstructive sleep apnea Uses CPAP Will watch the patient overnight as she has had significant bleeding. Repeat CBC in the morning. Give IV iron. Discussed with patient Past Medical History Past Medical History: Cancer, CVA/TIA, GERD/Reflux, Hyperlipidemia, Hypertension, Renal Disease, Seizure Disorder, Sleep Apnea/CPAP/BIPAP, Thyroid Disorder Additional Past Medical History / Comment(s): stage 4, kidney disease,. basal cell removed from left ear. stroke 2013- lost peripheral vision. siezure- with illness( vomiting diarrhea) long ago, one time- no meds.wears cpap History of Any Multi-Drug Resistant Organisms: None Reported Past Surgical History: Cholecystectomy Additional Past Surgical History / Comment(s): cataracts removed, repair fx rt wrist. pituatary adenoma removed. Past Anesthesia/Blood Transfusion Reactions: No Reported Reaction Past Psychological History: Depression Smoking Status: Never smoker Past Alcohol Use History: None Reported Past Drug Use History: None Reported - Past Family History Father Family Medical History: COPD Brother(s) Family Medical History: Cancer Additional Family Medical History / Comment(s): leukemia Medications and Allergies Home Medications Medication Instructions Recorded Confirmed Type Atorvastatin [Lipitor] 40 mg PO HS 10/15/24 10/18/24 History Calcium Acetate 667 mg PO W/SUPPER 10/15/24 10/18/24 History Citalopram Hydrobromide 40 mg PO DAILY 10/15/24 10/18/24 History [Citalopram HBr] Clopidogrel Bisulfate [Clopidogrel] 75 mg PO DAILY 10/15/24 10/18/24 History Darbepoetin Juvencio [Aranesp] 100 mcg SQ Q14D PRN 10/15/24 10/18/24 History Dialyvite 800 mg PO DAILY 10/15/24 10/18/24 History Ergocalciferol [Vitamin D2 (1250 1,250 mcg PO Q30D 10/15/24 10/18/24 History Mcg = 69810 Iu)] Famotidine 20 mg PO HS 10/15/24 10/18/24 History Febuxostat [Uloric] 40 mg PO DAILY 10/15/24 10/18/24 History Ketorolac 0.5% Ophth Soln [Acular 1 drops RIGHT EYE BID 10/15/24 10/18/24 History 0.5%] Levothyroxine Sodium 88 mcg PO MOTUWETHFRSA 10/15/24 10/18/24 History NIFEdipine [Adalat CC] 30 mg PO BID 10/15/24 10/18/24 History Prednisolone Acetate/Pf 1 drop RIGHT EYE BID 10/15/24 10/18/24 History [Prednisolone Acet 1% Eye Drop] Sodium Bicarbonate Tab 650 mg PO BID 10/15/24 10/18/24 History Sodium Zirconium Cyclosilicate 10 gm PO DAILY 10/15/24 10/18/24 History [Lokelma] calcitrioL 0.25 mcg PO MOFR 10/15/24 10/18/24 History carvediloL [Coreg] 6.25 mg PO BID 10/15/24 10/18/24 History Levothyroxine Sodium [Synthroid] 176 mcg PO BERRIOS 10/18/24 10/18/24 History Vit C/E/Zn/Coppr/Lutein/Zeaxan 1 cap PO BID 10/18/24 10/18/24 History [Preservision Areds 2 Softgel] traMADol HCl [Ultram] 50 mg PO DIRECTED PRN 10/18/24 10/18/24 History Allergies Allergy/AdvReac Type Severity Reaction Status Date / Time azathioprine [From Imuran] AdvReac diarrhea, Verified 10/18/24 18:18 wiped her out mycophenolate mofetil AdvReac diarrhea, Verified 10/18/24 18:18 [From CellCept] wiped out Physical Exam Vitals: Vital Signs Temp Pulse Pulse Pulse Resp BP BP 10/19/24 06:45 98.6 F 77 14 171/77 10/19/24 02:00 97.7 F 70 17 10/18/24 21:56 97.9 F 74 18 10/18/24 20:28 78 18 176/83 10/18/24 16:36 97.8 F 72 18 129/71 BP Pulse Ox 10/19/24 06:45 98 10/19/24 02:00 130/71 96 10/18/24 21:56 160/93 100 10/18/24 20:28 99 10/18/24 16:36 99 Intake and Output 10/18/24 10/19/24 10/19/24 22:59 06:59 14:59 Intake Total 780 Balance 780 Intake: Oral 780 Other: # Voids 2 Weight 68.946 kg Results CBC & Chem 7: 10/19/24 03:12 10/19/24 03:12 Labs: Abnormal Lab Results - Last 24 Hours (Table) 10/18/24 10/18/24 10/18/24 Range/Units 18:42 18:42 18:45 WBC 11.36 H (4.50-10.00) 10*3/uL RBC (4.10-5.20) X 10*6/uL Hgb 11.2 L (12.0-15.0) g/dL Hct 35.4 L (37.2-46.3) % MCH 26.0 L (27.0-32.0) pg MCHC 31.6 L (32.0-37.0) g/dL RDW 17.7 H (11.5-14.5) % MPV 9.4 L (9.5-12.2) fL Immature Gran # (0.00-0.04) X 10*3/uL Neutrophils # 8.63 H (1.80-7.70) 10*3/uL Monocytes # 1.01 H (0.20-1.00) 10*3/uL APTT 21.2 L (22.0-30.0) sec Carbon Dioxide 19 L (22-30) mmol/L Anion Gap (4.00-12.00) mmol/L BUN 114 H* (7-17) mg/dL Creatinine 4.25 H (0.52-1.04) mg/dL Est GFR (CKD-EPI) (>=60) BUN/Creatinine Ratio (12.00-20.00) Ratio Glucose 102 H (74-99) mg/dL Phosphorus 6.9 H (2.5-4.5) mg/dL Magnesium 2.4 H (1.6-2.3) mg/dL Total Bilirubin (0.3-1.2) mg/dL Total Protein (6.2-8.2) g/dL 10/19/24 10/19/24 Range/Units 03:12 03:12 WBC 12.23 H (4.50-10.00) 10*3/uL RBC 3.80 L (4.10-5.20) X 10*6/uL Hgb 9.7 L (12.0-15.0) g/dL Hct 32.4 L (37.2-46.3) % MCH 25.5 L (27.0-32.0) pg MCHC 29.9 L (32.0-37.0) g/dL RDW 18.1 H (11.5-14.5) % MPV (9.5-12.2) fL Immature Gran # 0.05 H (0.00-0.04) X 10*3/uL Neutrophils # 8.96 H (1.80-7.70) 10*3/uL Monocytes # 1.17 H (0.20-1.00) 10*3/uL APTT (22.0-30.0) sec Carbon Dioxide 17.2 L (22-30) mmol/L Anion Gap 14.80 H (4.00-12.00) mmol/L BUN 108.0 H (7-17) mg/dL Creatinine 4.3 H (0.52-1.04) mg/dL Est GFR (CKD-EPI) 11 L (>=60) BUN/Creatinine Ratio 25.12 H (12.00-20.00) Ratio Glucose (74-99) mg/dL Phosphorus 5.7 H (2.5-4.5) mg/dL Magnesium (1.6-2.3) mg/dL Total Bilirubin <0.2 L (0.3-1.2) mg/dL Total Protein 5.7 L (6.2-8.2) g/dL
[2024-10-19] MEDS: SODIUM FERRIC GLUCONAT-SUCROSE 125 MG in SODIUM CHLORIDE 0.9% 100 ML IVPB SCH (21:06)
[2024-10-19] MEDS: ATORVASTATIN 40 MG TAB PO SCH (21:06)
[2024-10-19] MEDS: FAMOTIDINE 20 MG TAB PO SCH (21:06)
[2024-10-19] MEDS: VIT A,C & E-LUTEIN-MINERALS 1 EACH TAB PO SCH (21:07)
[2024-10-20 01:22] VITALS: RESP 16
[2024-10-20] MEDS: LEVOTHYROXINE 88 MCG TAB PO SCH (06:22)
[2024-10-20 07:48] VITALS: BP 132/72; PULSE 78; TEMP 98.5
[2024-10-20 08:43] LABS: Basophils # (A) 0.04 X 10*3/uL (0.00-0.10); Basophils % (A) 0.4 %; Eosinophils # (A) 0.43 X 10*3/uL (0.04-0.35); HCT 31.7 % (37.2-46.3); HGB 9.6 g/dL (12.0-15.0); Lymphocytes % (A) 21.5 %; MCH 25.4 pg (27.0-32.0); MCHC 30.3 g/dL (32.0-37.0); MCV 83.9 FL (80.0-97.0); Mean Platelet Volume 10.1 FL (9.5-12.2); Monocytes # (A) 1.08 X 10*3/uL (0.20-1.00); Monocytes % (A) 10.1 %; NRBC Per 100 WBC 0 X 10*3/uL (0.00-0.01); Neutrophils # (A) 6.83 X 10*3/uL (1.80-7.70); Neutrophils % (A) 63.6 %; Platelet Count 200 X 10*3/uL (140-440); RBC 3.78 X 10*6/uL (4.10-5.20); RDW 18.1 % (11.5-14.5); WBC 10.72 X 10*3/uL (4.50-10.00)
--- NOTE | 2024-10-20 10:31 | P.PN ---
Subjective Progress Note Date: 10/20/24 SURGICAL PROGRESS NOTE CHIEF COMPLAINT: Fluid leak from peritoneal dialysis catheter HISTORY OF PRESENT ILLNESS: Patient has had no further significant leaking around the peritoneal dialysis catheter. There is a very tiny amount of serosanguineous drainage noted on the dressing. Patient is receiving her second bag of IV iron. Hemoglobin stable at 9.6. Patient denies any abdominal pain. Vital stable. PHYSICAL EXAM: VITAL SIGNS: Reviewed. GENERAL: Well-developed in no acute distress. ABDOMEN: Soft. Nondistended. Peritoneal dialysis catheter site is clean and intact. No evidence of erythema, no ecchymosis. There is a tiny amount of serosanguineous drainage noted on the sterile dressing. NEUROLOGIC: Alert and oriented. Cranial nerves II through XII grossly intact. ASSESSMENT: 1. End-stage renal disease 2. Peritoneal dialysis fluid leakage around catheter exit site PLAN: - Patient can be discharged from surgical standpoint - Dressing will be changed by nursing staff today before discharge. Chlorhexidine wipe around the peritoneal dialysis catheter and cover with sterile gauze and ABD pad - Patient to follow-up with nephrology at already scheduled appointment. And further dressing change will be completed by nephrology. Physician [employer]ching [employer] note has been reviewed by physician. Signing provider agrees with the documented findings, assessment, and plan of care. Objective - Vital Signs Vital signs: Vital Signs Temp 98.5 F 10/20/24 06:50 Pulse 78 10/20/24 06:50 Resp 16 10/20/24 06:50 BP 132/72 10/20/24 06:50 Pulse Ox 99 10/20/24 06:50 FiO2 Intake & Output 10/19/24 10/20/24 10/20/24 18:59 06:59 18:59 Intake Total 354 Balance 354 Intake: Oral 354 Other: # Voids 5 2 # Bowel Movements 0 - Labs CBC & Chem 7: 10/20/24 04:46 10/19/24 03:12 Labs: Abnormal Lab Results - Last 24 Hours (Table) 10/20/24 Range/Units 04:46 WBC 10.72 H (4.50-10.00) X 10*3/uL RBC 3.78 L (4.10-5.20) X 10*6/uL Hgb 9.6 L (12.0-15.0) g/dL Hct 31.7 L (37.2-46.3) % MCH 25.4 L (27.0-32.0) pg MCHC 30.3 L (32.0-37.0) g/dL RDW 18.1 H (11.5-14.5) % Monocytes # 1.08 H (0.20-1.00) X 10*3/uL Eosinophils # 0.43 H (0.04-0.35) X 10*3/uL
[2024-10-20 11:24] VITALS: BMI 26.1
--- NOTE | 2024-10-20 17:09 | P.DS ---
Providers Date of admission: 10/18/24 18:18 Expected date of discharge: 10/20/24 Attending physician: Frankie Simpson Consults: 10/18/24 18:18 Consult Physician Routine Consulting Provider: Merlin Stallworth Consult Reason/Comments: known Do you want consulting provider notified?: Yes [facility] Course: Chief Complaint: Bleeding from the PD catheter site Very pleasant 64-year-old patient who follows with Dr. Roderick Lynn. Chronic medical conditions include GERD, hyperlipidemia, hypertension, chronic kidney disease, seizure disorder, obstructive sleep apnea, hypothyroid. Had a stroke in 2013 and lost peripheral vision. Does wear CPAP. On October 17 patient underwent peritoneal dialysis catheter placement with Dr. Stallworth.. This was on a Sunday. The following day she started noticing blood oozing around the site. Finally decided to come in. Initially encountered [facility]. Did lose some significant amount of blood. Earlier today Dr. Stallworth put a new dressing and a binder across. Denies any dizziness lightheadedness. Appetite is fair. Does make urine. October 20: No further bleeding. Hemoglobin stable. Patient is to follow-up with her play back operator. Questions answered. Social history: Non-smoker. No alcohol. . Lives alone Physical examination: VITAL SIGNS: 98.5, 78, 16, 132 x 72, 99% room GENERAL: BMI 26.1, sitting up in chair awake, comfortable EYES: Pupils equal. Conjunctiva whitney l. HEENT: External appearance of nose and ears normal, oral cavity grossly normal. NECK: JVD not raised; masses not palpable. HEART: First and second heart sounds are normal; no edema. LUNGS: Respiratory rate normal; clear to auscultation. ABDOMEN: [Dressing at the PD catheter site. Binder PSYCH: Alert and oriented x3; mood and affect whitney l. MUSCULOSKELETAL:No Clubbing/cyanosis;muscles-grossly intact. OA INVESTIGATIONS, reviewed in the clinical context: October 20: Hemoglobin 9.6 October 19, 2024: White count 12.2 hemoglobin 9.7 platelets 192 sodium 141 potassium 5.1 BUN 108 creatinine 4.3 October 18: Hemoglobin 11.2 platelets 211 October 17: Hemoglobin 11.2 Assessment plan: - Acute bleeding locally at the site of peritoneal dialysis catheter that was placed on October [address] Stallworth. Note patient is on Coumadin but her INR was only 1.: No further bleeding dressing around the PD catheter site. With abdominal binder per Dr. Stallworth. - Acute blood loss anemia from PD catheter site. Hemoglobin was 11.2 dropped to 9.7. IV iron. Follow H&H: Stable - CKD stage IV, likely nephrosclerosis Follow-up with nephrology - Essential hypertension Coreg nifedipine - Depression Celexa 40 mg a day - Hypothyroid Synthroid - Chronic metabolic acidosis from underlying kidney disease Sodium bicarbonate - Hyperlipidemia Lipitor - Obstructive sleep apnea Uses CPAP Disposition: Home Past Medical History Past Medical History: Cancer, CVA/TIA, GERD/Reflux, Hyperlipidemia, Hypertension, Renal Disease, Seizure Disorder, Sleep Apnea/CPAP/BIPAP, Thyroid Disorder Additional Past Medical History / Comment(s): stage 4, kidney disease,. basal cell removed from left ear. stroke 2013- lost peripheral vision. siezure- with illness( vomiting diarrhea) long ago, one time- no meds.wears cpap History of Any Multi-Drug Resistant Organisms: None Reported Past Surgical History: Cholecystectomy Additional Past Surgical History / Comment(s): cataracts removed, repair fx rt wrist. pituatary adenoma removed. Past Anesthesia/Blood Transfusion Reactions: No Reported Reaction Past Psychological History: Depression Smoking Status: Never smoker Past Alcohol Use History: None Reported Past Drug Use History: None Reported Plan - Discharge Summary Discharge Rx Participant: No New Discharge Prescriptions: Continue Sodium Zirconium Cyclosilicate [Lokelma] 10 gm PO DAILY Famotidine 20 mg PO HS Ergocalciferol [Vitamin D2 (1250 Mcg = 12997 Iu)] 1,250 mcg PO Q30D Atorvastatin [Lipitor] 40 mg PO HS Febuxostat [Uloric] 40 mg PO DAILY calcitrioL 0.25 mcg PO MOFR NIFEdipine [Adalat CC] 30 mg PO BID Sodium Bicarbonate Tab 650 mg PO BID Ketorolac 0.5% Ophth Soln [Acular 0.5%] 1 drops RIGHT EYE BID Calcium Acetate 667 mg PO W/SUPPER Dialyvite 800 mg PO DAILY Levothyroxine Sodium [Synthroid] 176 mcg PO BERRIOS Vit C/E/Zn/Coppr/Lutein/Zeaxan [Preservision Areds 2 Softgel] 1 cap PO BID traMADol HCl [Ultram] 50 mg PO DIRECTED PRN PRN Reason: Pain Darbepoetin Juvencio [Aranesp] 100 mcg SQ Q14D PRN PRN Reason: hemoglobin below 10.5 carvediloL [Coreg] 6.25 mg PO BID Clopidogrel Bisulfate [Clopidogrel] 75 mg PO DAILY Prednisolone Acetate/Pf [Prednisolone Acet 1% Eye Drop] 1 drop RIGHT EYE BID Levothyroxine Sodium 88 mcg PO MOTUWETHFRSA Citalopram Hydrobromide [Citalopram HBr] 40 mg PO DAILY Discharge Medication List Atorvastatin [Lipitor] 40 mg PO HS 10/15/24 [History] Calcium Acetate 667 mg PO W/SUPPER 10/15/24 [History] Citalopram Hydrobromide [Citalopram HBr] 40 mg PO DAILY 10/15/24 [History] Clopidogrel Bisulfate [Clopidogrel] 75 mg PO DAILY 10/15/24 [History] Darbepoetin Juvencio [Aranesp] 100 mcg SQ Q14D PRN 10/15/24 [History] Dialyvite 800 mg PO DAILY 10/15/24 [History] Ergocalciferol [Vitamin D2 (1250 Mcg = 17671 Iu)] 1,250 mcg PO Q30D 10/15/24 [History] Famotidine 20 mg PO HS 10/15/24 [History] Febuxostat [Uloric] 40 mg PO DAILY 10/15/24 [History] Ketorolac 0.5% Ophth Soln [Acular 0.5%] 1 drops RIGHT EYE BID 10/15/24 [History] Levothyroxine Sodium 88 mcg PO MOTUWETHFRSA 10/15/24 [History] NIFEdipine [Adalat CC] 30 mg PO BID 10/15/24 [History] Prednisolone Acetate/Pf [Prednisolone Acet 1% Eye Drop] 1 drop RIGHT EYE BID 10/15/24 [History] Sodium Bicarbonate Tab 650 mg PO BID 10/15/24 [History] Sodium Zirconium Cyclosilicate [Lokelma] 10 gm PO DAILY 10/15/24 [History] calcitrioL 0.25 mcg PO MOFR 10/15/24 [History] carvediloL [Coreg] 6.25 mg PO BID 10/15/24 [History] Levothyroxine Sodium [Synthroid] 176 mcg PO BERRIOS 10/18/24 [History] Vit C/E/Zn/Coppr/Lutein/Zeaxan [Preservision Areds 2 Softgel] 1 cap PO BID 10/18/24 [History] traMADol HCl [Ultram] 50 mg PO DIRECTED PRN 10/18/24 [History] Follow up Appointment(s)/Referral(s): Merlin Stallworth MD [Medical Doctor] - 10/29/24 4:10 pm Roderick Lynn MD [Primary Care Provider] - 1-2 days Dannie Fontaine DO [STAFF PHYSICIAN] - 10/28/24 12:00 pm Activity/Diet/Wound Care/Special Instructions: Keep already scheduled follow-up appointment with play back operator. At that appointment they will take care of further dressing change. Discharge Disposition: HOME SELF-CARE
== END 2024-10-20 13:34 | disposition home or self-care (01) ==
LOC: EC 16:33 → 4SSUR 18:18 → 6NMEDSUR 20:20
PROVIDERS: ADMIT Hospitalist; ATTEND Hospitalist
DX: T85.838A Hemorrhage due to other internal prosthetic devices, implants and grafts, initial encounter (principal); Y81.2 Prosthetic and other implants, materials and accessory general- and plastic-surgery devices associated with adverse incidents; D62 Acute posthemorrhagic anemia; E87.20 Acidosis, unspecified; I12.0 Hypertensive chronic kidney disease with stage 5 chronic kidney disease or end stage renal disease; N18.6 End stage renal disease; E03.9 Hypothyroidism, unspecified; E78.5 Hyperlipidemia, unspecified; F32.A Depression, unspecified; G40.909 Epilepsy, unspecified, not intractable, without status epilepticus; G47.33 Obstructive sleep apnea (adult) (pediatric); K21.9 Gastro-esophageal reflux disease without esophagitis; I69.398 Other sequelae of cerebral infarction; H53.8 Other visual disturbances; Z79.02 Long term (current) use of antithrombotics/antiplatelets; Z79.890 Hormone replacement therapy; Z79.899 Other long term (current) drug therapy; Z88.8 Allergy status to other drugs, medicaments and biological substances
CPT/HCPCS: 96365; 96366; 99284; 80053 ×2; 83735 ×2; 84100 ×2; 85025 ×3; 85610; 85730; G0378 ×4; J2916 ×2

== ENCOUNTER 2024-10-23 09:42 | Emergency (ER) | payer MEDICARE ==
[2024-10-23 09:47] VITALS: BP 147/77; PULSE 80; RESP 20; TEMP 98.1
--- NOTE | 2024-10-23 10:25 | ED ---
Extremity Problem HPI - General Source: patient, RN notes reviewed Mode of arrival: ambulatory Limitations: no limitations - History of Present Illness Complaint: extremity pain <Ghazala Kahn - Last Filed: 10/23/24 16:17> <Bakari Malcolm - Last Filed: 10/24/24 10:04> - General Chief complaint: Extremity Problem,Nontraumatic Stated complaint: R shouder pain - History of Present Illness Initial comments: Patient is a 64-year-old female with CKD, HTN, HLD presenting for 2 to 3 days of right antecubital redness and swelling which worsened and her shoulder started bothering her yesterday. States that she had a PD catheter placed on Sunday, then was admitted Sunday until Sunday for continued bleeding from the surgical site. On the same day of discharge she noticed that she had some redness proximal to the antecubital fossa where her IV had been placed. She then noticed some swelling of the area over the next day or two and yesterday the pain started radiating to her shoulder which limited her range of motion. She has tried Tylenol, last dose around 0300. She denies any fever/chills, nausea/vomiting, chest pain, difficulty breathing, abdominal pain except for surgical site tenderness from newly placed PD catheter. (Ghazala Kahn) - Related Data Home Medications Medication Instructions Recorded Confirmed Atorvastatin [Lipitor] 40 mg PO HS 10/15/24 10/18/24 Calcium Acetate 667 mg PO W/SUPPER 10/15/24 10/18/24 Citalopram Hydrobromide 40 mg PO DAILY 10/15/24 10/18/24 [Citalopram HBr] Clopidogrel Bisulfate [Clopidogrel] 75 mg PO DAILY 10/15/24 10/18/24 Darbepoetin Juvencio [Aranesp] 100 mcg SQ Q14D PRN 10/15/24 10/18/24 Dialyvite 800 mg PO DAILY 10/15/24 10/18/24 Ergocalciferol [Vitamin D2 (1250 1,250 mcg PO Q30D 10/15/24 10/18/24 Mcg = 82194 Iu)] Famotidine 20 mg PO HS 10/15/24 10/18/24 Febuxostat [Uloric] 40 mg PO DAILY 10/15/24 10/18/24 Ketorolac 0.5% Ophth Soln [Acular 1 drops RIGHT EYE BID 10/15/24 10/18/24 0.5%] Levothyroxine Sodium 88 mcg PO MOTUWETHFRSA 10/15/24 10/18/24 NIFEdipine [Adalat CC] 30 mg PO BID 10/15/24 10/18/24 Prednisolone Acetate/Pf 1 drop RIGHT EYE BID 10/15/24 10/18/24 [Prednisolone Acet 1% Eye Drop] Sodium Bicarbonate Tab 650 mg PO BID 10/15/24 10/18/24 Sodium Zirconium Cyclosilicate 10 gm PO DAILY 10/15/24 10/18/24 [Lokelma] calcitrioL 0.25 mcg PO MOFR 10/15/24 10/18/24 carvediloL [Coreg] 6.25 mg PO BID 10/15/24 10/18/24 Levothyroxine Sodium [Synthroid] 176 mcg PO BERRIOS 10/18/24 10/18/24 Vit C/E/Zn/Coppr/Lutein/Zeaxan 1 cap PO BID 10/18/24 10/18/24 [Preservision Areds 2 Softgel] traMADol HCl [Ultram] 50 mg PO DIRECTED PRN 10/18/24 10/18/24 Allergies Allergy/AdvReac Type Severity Reaction Status Date / Time azathioprine [From Imuran] AdvReac diarrhea, Verified 10/18/24 18:18 wiped her out mycophenolate mofetil AdvReac diarrhea, Verified 10/18/24 18:18 [From CellCept] wiped out Review of Systems ROS Other: All systems not noted in ROS Statement are negative. Constitutional: Denies: fever, chills Respiratory: Denies: cough, dyspnea Gastrointestinal: Denies: abdominal pain, nausea, vomiting, diarrhea, constipation, melena, hematochezia Genitourinary: Denies: dysuria, hematuria Skin: Reports: as per HPI Neurological: Denies: headache, weakness <Ghazala Kahn - Last Filed: 10/23/24 16:17> ROS Other: All systems not noted in ROS Statement are negative. <Bakari Malcolm - Last Filed: 10/24/24 10:04> ROS Statement: Those systems with pertinent positive or pertinent negative responses have been documented in the HPI. Past Medical History Past Medical History: Cancer, CVA/TIA, GERD/Reflux, Hyperlipidemia, Hypertension, Renal Disease, Seizure Disorder, Sleep Apnea/CPAP/BIPAP, Thyroid Disorder Additional Past Medical History / Comment(s): stage 4, kidney disease,. basal cell removed from left ear. stroke 2013- lost peripheral vision. siezure- with illness( vomiting diarrhea) long ago, one time- no meds.wears cpap History of Any Multi-Drug Resistant Organisms: None Reported Past Surgical History: Cholecystectomy Additional Past Surgical History / Comment(s): cataracts removed, repair fx rt wrist. pituatary adenoma removed. Past Anesthesia/Blood Transfusion Reactions: No Reported Reaction Past Psychological History: Depression Smoking Status: Never smoker Past Alcohol Use History: None Reported Past Drug Use History: None Reported - Past Family History Father Family Medical History: COPD Brother(s) Family Medical History: Cancer Additional Family Medical History / Comment(s): leukemia <Ghazala Kahn - Last Filed: 10/23/24 16:17> General Exam Limitations: no limitations General appearance: alert, in no apparent distress Head exam: Present: atraumatic Eye exam: Present: normal appearance, EOMI Respiratory exam: Present: normal lung sounds bilaterally. Absent: respiratory distress, wheezes, rales, rhonchi, accessory muscle use Cardiovascular Exam: Present: regular rate, normal rhythm, normal heart sounds. Absent: systolic murmur, diastolic murmur GI/Abdominal exam: Present: soft, tenderness (Postsurgical tenderness), normal bowel sounds. Absent: distended Extremities exam: Present: normal inspection Right Shoulder Exam: Absent: full ROM (Limited by pain), tenderness, swelling, ecchym osis, deformity, erythema, tenderness over AC joint Upper Arm exam: Present: tenderness (Antecubital ), swelling (Antecubital ), erythema (Antecubital). Absent: ecchymosis Vascular: Present: normal capillary refill. Absent: vascular compromise Neurological exam: Present: alert, oriented X3 Psychiatric exam: Present: normal affect, normal mood Skin exam: Present: warm, dry, intact, normal color <Ghazala Kahn - Last Filed: 10/23/24 16:17> Course Vital Signs 10/23/24 09:44 Temperature 98.1 F Pulse Rate 80 Respiratory 20 Rate Blood Pressure 147/77 O2 Sat by Pulse 98 Oximetry Medical Decision Making - Lab Data Result diagrams: 10/23/24 10:30 10/23/24 10:30 - EKG Data -: EKG Interpreted by Me EKG shows normal: sinus rhythm, axis Rate: normal <Ghazala Kahn - Last Filed: 10/23/24 16:17> - Lab Data Result diagrams: 10/23/24 10:30 10/23/24 10:30 <GoldBakari - Last Filed: 10/24/24 10:04> - Medical Decision Making Was pt. sent in by a medical professional or institution (, [facility], GENERAL OPERATOR, urgent care, hospital, or senior care...) When possible be specific @ -No Did you speak to anyone other than the patient for history (EMS, parent, family, police, friend...)? What history was obtained from this source @ -No Did you review nursing and triage notes (agree or disagree)? Why? @ -I reviewed and agree with nursing and triage notes Were old charts reviewed (outside hosp., previous admission, EMS record, old EKG, old radiological studies, urgent care reports/EKG's, senior care records)? Report findings @ -No old charts were reviewed Differential Diagnosis? @ -DVT, superficial vein thrombosis, infection, cellulitis. This phenomenon to be an all-inclusive list. EKG interpreted by me (3pts min.). @ -As above X-rays interpreted by me (1pt min.). @ -None done CT interpreted by me (1pt min.). @ -None done U/S interpreted by me (1pt. min.). @ -Superficial vein thrombosis of cephalic vein What testing was considered but not performed or refused? (CT, X-rays, U/S, labs)? Why? @ -None What meds were considered but not given or refused? Why? @ -None Did you discuss the management of the patient with other professionals (professionals i.e. , LACEY, GENERAL OPERATOR, lab, RT, psych nurse, social problems specialist, director of community education, teacher, aeronautical engineering officer, machine adjuster leader case trim)? Give summary @ -No Was smoking cessation discussed for >3mins.? @ -No Was critical care preformed (if so, how long)? @ -No Were there social determinants of health that impacted care today? How? (Homelessness, low income, unemployed, alcoholism, drug addiction, transportation, low edu. Level, literacy, decrease access to med. care, [facility], rehab)? @ -No Was there de-escalation of care discussed even if they declined (Discuss DNR or withdrawal of care, Hospice)? DNR status @ -No What co-morbidities impacted this encounter? (DM, HTN, Smoking, COPD, CAD, Cancer, CVA, ARF, Chemo, Hep., AIDS, mental health diagnosis, sleep apnea, morbid obesity)? @ -CKD Was patient admitted / discharged? Hospital course, mention meds given and route, prescriptions, significant lab abnormalities, going to OR and other pertinent info. @ -Patient is a 64-year-old female with CKD status post PD catheter 6 days ago presenting for 2-3 days of antecubital redness, swelling, tenderness and 1 day of shoulder pain. She has not taken her Plavix since 10/11 due to PD catheter placement. A CBC, BMP, coag panel, venous Doppler ultrasound right upper extremity were performed. Venous Doppler ultrasound of right upper extremity showed no DVT but positive for SVT involving cephalic vein at the elbow. Results discussed with patient. Recommendation for symptomatic treatment including compression, warm compresses, elevation, and NSAIDs (avoiding nephrotoxins). Provided patient with Jaquan wrap of the right arm and discussed instructions for management. Patient verbalized an understanding to this plan. Recommend follow-up with PCP in 1 to 2 days. Undiagnosed new problem with uncertain prognosis? @ -No Drug Therapy requiring intensive monitoring for toxicity (Heparin, Nitro, Insulin, Cardizem)? @ -No Were any procedures done? @ -No Diagnosis/symptom? @ -Superficial vein thrombosis Acute, or Chronic, or Acute on Chronic? @ -Acute Uncomplicated (without systemic symptoms) or Complicated (systemic symptoms)? @ -Uncomplicated Side effects of treatment? @ -No Exacerbation, Progression, or Severe Exacerbation? @ -No Poses a threat to life or bodily function? How? (Chest pain, USA, MD, pneumonia, PE, COPD, DKA, ARF, appy, cholecystitis, CVA, Diverticulitis, Homicidal, Suicidal, threat to staff... and all critical care pts) @ -No (Ghazala Kahn) I personally saw the patient and performed the critical portion of the service. I discussed the patient care with the resident. I directed management, care planning and final disposition of the patient. This includes, but not limited to, review of all lab work, radiological studies, EKG's, consultations, vital signs, and nursing notes. EKG interpreted by me (3pts min.) @None none X-Rays interpreted by me (1 pt min.) @None CT interpreted by me ( 1pt min.) @None U/S interpreted by me (1 pt min.) @Ultrasound reveals a superficial vein thrombosis of the cephalic vein at the elbow. Discussed at length with the patient that superficial vein thrombosis is indicative of symptomatic management with Jaquan wrapping, compression wrapping, warm compresses and warm packs, analgesic control. Recommended she follow-up with PCP in the next 1 to 3 days and may require repeat imaging if the symptoms do not improve. She expressed understanding. Dr. Kahn reiterated these instructions. (Bakari Malcolm) - Lab Data Lab Results 10/23/24 10/23/24 10/23/24 Range/Units 10:30 10:30 10:30 WBC 13.03 H (4.50-10.00) 10*3/uL RBC 3.88 L (4.10-5.20) 10*6/uL Hgb 10.5 L (12.0-15.0) g/dL Hct 32.2 L (37.2-46.3) % MCV 83.0 (80.0-97.0) fL MCH 27.1 (27.0-32.0) pg MCHC 32.6 (32.0-37.0) g/dL Plt Count 193 (140-440) 10*3/uL MPV 9.7 (9.5-12.2) fL Immature Gran % (Auto) 0.7 % Neutrophils % 81.1 % Lymphocytes % 7.4 % Monocytes % 8.4 % Eosinophils % 2.1 % Basophils % 0.3 % Immature Gran # 0.09 H (0.00-0.04) 10*3/uL Neutrophils # 10.56 H (1.80-7.70) 10*3/uL Lymphocytes # 0.97 (0.90-5.00) 10*3/uL Monocytes # 1.09 H (0.20-1.00) 10*3/uL Eosinophils # 0.28 (0.04-0.35) 10*3/uL Basophils # 0.04 (0.00-0.10) 10*3/uL PT 11.1 (10.0-12.5) sec INR 1.0 (<1.2) APTT 24.2 (22.0-30.0) sec Sodium 138 (137-145) mmol/L Potassium 4.5 (3.5-5.1) mmol/L Chloride 107 (98-107) mmol/L Carbon Dioxide 15 L (22-30) mmol/L Anion Gap 16 mmol/L BUN 105 H* (7-17) mg/dL Creatinine 4.16 H (0.52-1.04) mg/dL Est GFR (CKD-EPI)AfAm 12 (>60 ml/min/1.73 sqM) Est GFR (CKD-EPI)NonAf 11 (>60 ml/min/1.73 sqM) Glucose 127 H (74-99) mg/dL Calcium 10.0 (8.4-10.2) mg/dL - EKG Data EKG Comments: Sinus rhythm, normal axis, no ST segment changes, rate 79 bpm, QTc 410 ms (Ghazala Kahn) Disposition Is patient prescribed a controlled substance at d/c from ED?: No Time of Disposition: 12:25 <Ghazala Kahn - Last Filed: 10/23/24 16:17> <Bakari Malcolm - Last Filed: 10/24/24 10:04> Clinical Impression: Superficial venous thrombosis of right arm Disposition: HOME SELF-CARE Condition: Stable Instructions (If sedation given, give patient instructions): Superficial Thrombophlebitis (ED) Additional Instructions: Every disease is a spectrum and a small chance still exists that a serious con dition could develop, for this reason, please monitor yourself closely for new, changing or worsening symptoms, symptoms that persist beyond 48 hours, fever, inability to tolerate/keep down fluids or your medications, inability to follow up with outpatient providers as instructed and should you experience these symptoms or should you have any further concerns for your wellbeing please return to the ED or call 911 immediately. Symptomatic treatment of superficial vein thrombosis with compression, warm compresses, NSAIDs like Tylenol. You can take up to 1000 mg of acetaminophen (Tylenol) every 6 hours. Be careful as this is included in some medicines like Nyquil, [place], Percocet, Vicodin, STANBACK, Goody's Powders, and Excedrin. PLEASE call your primary care physician as soon as possible to arrange / discuss plan for followup appointment. Appointment in the next 1-3 days is strongly e ncouraged if possible. PLEASE let us know here before you leave if there is anything further we can do to be of any assistance. Take care and feel Better! Referrals: Roderick Lynn MD [Primary Care Provider] - 1-2 days
[2024-10-23 11:09] LABS: African American GFR (CKD) 12 (>60 ml/min/1.73 sqM); Anion Gap 16 mmol/L; Carbon Dioxide 15 mmol/L (22-30); Chloride 107 mmol/L (98-107); Glucose 127 mg/dL (74-99); Non-African American GFR(CKD) 11 (>60 ml/min/1.73 sqM); Potassium 4.5 mmol/L (3.5-5.1); Sodium 138 mmol/L (137-145)
[2024-10-23] MEDS: ACETAMINOPHEN TAB 325 MG TAB PO STA (11:09)
[2024-10-23 11:13] LABS: Partial Thromboplastin Time 24.2 sec (22.0-30.0); Prothrombin Time 11.1 sec (10.0-12.5)
[2024-10-23 11:18] LABS: Blood Urea Nitrogen 105 mg/dL (7-17)
[2024-10-23 11:23] LABS: Basophils # (A) 0.04 10*3/uL (0.00-0.10); Basophils % (A) 0.3 %; Eosinophils # (A) 0.28 10*3/uL (0.04-0.35); Eosinophils % (A) 2.1 %; HCT 32.2 % (37.2-46.3); HGB 10.5 g/dL (12.0-15.0); Lymphocytes # (A) 0.97 10*3/uL (0.90-5.00); Lymphocytes % (A) 7.4 %; MCH 27.1 pg (27.0-32.0); MCHC 32.6 g/dL (32.0-37.0); Mean Platelet Volume 9.7 fL (9.5-12.2); Monocytes # (A) 1.09 10*3/uL (0.20-1.00); Monocytes % (A) 8.4 %; Neutrophils # (A) 10.56 10*3/uL (1.80-7.70); Neutrophils % (A) 81.1 %; Platelet Count 193 10*3/uL (140-440); RBC 3.88 10*6/uL (4.10-5.20); RDW 18.3 % (11.5-14.5); WBC 13.03 10*3/uL (4.50-10.00)
--- NOTE | 2024-10-23 11:55 | US ---
EXAMINATION TYPE: US venous doppler duplex UE RT DATE OF EXAM: 10/23/2024 COMPARISON: NONE CLINICAL INDICATION: Female, 64 years old with history of eval for DVT; No hx of DVT. Patient is on P lavix. Pain x 1 week in right arm. TECHNIQUE: Grayscale, color Doppler and spectral Doppler imaging of the upper extremity. SIDE PERFORMED: Right arm VESSELS IMAGED: IJV Subclavian Vein Axilla Vein Brachial Vein(s) Radial Paired Veins Ulnar Paired Veins Cephalic Vein* Basilic Vein* (*superficial vessels) FINDINGS: Right Arm: [employer] Laborer notes: *Positive for superficial thrombus. *Internal echoes seen in right cephalic vein in the elbow area. Lack of color flow within this area. This segment does not compress. No evidence of DVT Radial and ulnar veins appear to stay separate through the upper arm. IMPRESSION: 1. No evidence for DVT within the right upper extremity. 2. However, the exam is positive for SVT involving the cephalic vein at the elbow. [facility], , 10/23/2024 11:53 AM
== END 2024-10-23 12:36 | disposition home or self-care (01) ==
LOC: EC 09:42
DX: I82.611 Acute embolism and thrombosis of superficial veins of right upper extremity (principal); I12.9 Hypertensive chronic kidney disease with stage 1 through stage 4 chronic kidney disease, or unspecified chronic kidney disease; N18.9 Chronic kidney disease, unspecified; Z88.8 Allergy status to other drugs, medicaments and biological substances
CPT/HCPCS: 36415; 80048; 85025; 85610; 85730; 99284

== ENCOUNTER 2024-11-29 13:36 | Inpatient (IN) | payer MEDICARE ==
--- NOTE | 2024-11-29 15:09 | ED ---
General Adult HPI - General Chief complaint: GI Bleed Stated complaint: Blood in stool Time Seen by Provider: 11/29/24 14:43 Source: patient, RN notes reviewed, old records reviewed Mode of arrival: ambulatory Limitations: no limitations - History of Present Illness Initial comments: 64-year-old female presenting for evaluation of bright red rectal bleeding which began yesterday. Patient has had several episodes of both blood and stool with blood. She has no prior reported history of diverticulosis. Denies any known hemorrhoids. Patient is on Plavix. Patient recently had peritoneal dialysis catheter placed and has been started on peritoneal dialysis. She denies pain complaints. Denies fever. - Related Data Home Medications Medication Instructions Recorded Confirmed Atorvastatin [Lipitor] 40 mg PO HS 10/15/24 10/18/24 Calcium Acetate 667 mg PO W/SUPPER 10/15/24 10/18/24 Citalopram Hydrobromide 40 mg PO DAILY 10/15/24 10/18/24 [Citalopram HBr] Clopidogrel Bisulfate [Clopidogrel] 75 mg PO DAILY 10/15/24 10/18/24 Darbepoetin Juvencio [Aranesp] 100 mcg SQ Q14D PRN 10/15/24 10/18/24 Dialyvite 800 mg PO DAILY 10/15/24 10/18/24 Ergocalciferol [Vitamin D2 (1250 1,250 mcg PO Q30D 10/15/24 10/18/24 Mcg = 08533 Iu)] Famotidine 20 mg PO HS 10/15/24 10/18/24 Febuxostat [Uloric] 40 mg PO DAILY 10/15/24 10/18/24 Ketorolac 0.5% Ophth Soln [Acular 1 drops RIGHT EYE BID 10/15/24 10/18/24 0.5%] Levothyroxine Sodium 88 mcg PO MOTUWETHFRSA 10/15/24 10/18/24 NIFEdipine [Adalat CC] 30 mg PO BID 10/15/24 10/18/24 Prednisolone Acetate/Pf 1 drop RIGHT EYE BID 10/15/24 10/18/24 [Prednisolone Acet 1% Eye Drop] Sodium Bicarbonate Tab 650 mg PO BID 10/15/24 10/18/24 Sodium Zirconium Cyclosilicate 10 gm PO DAILY 10/15/24 10/18/24 [Lokelma] calcitrioL 0.25 mcg PO MOFR 10/15/24 10/18/24 carvediloL [Coreg] 6.25 mg PO BID 10/15/24 10/18/24 Levothyroxine Sodium [Synthroid] 176 mcg PO BERRIOS 10/18/24 10/18/24 Vit C/E/Zn/Coppr/Lutein/Zeaxan 1 cap PO BID 10/18/24 10/18/24 [Preservision Areds 2 Softgel] traMADol HCl [Ultram] 50 mg PO DIRECTED PRN 10/18/24 10/18/24 Allergies Allergy/AdvReac Type Severity Reaction Status Date / Time azathioprine [From Imuran] AdvReac diarrhea, Verified 11/29/24 13:46 wiped her out mycophenolate mofetil AdvReac diarrhea, Verified 11/29/24 13:46 [From CellCept] wiped out Review of Systems ROS Statement: Those systems with pertinent positive or pertinent negative responses have been documented in the HPI. ROS Other: All systems not noted in ROS Statement are negative. Past Medical History Past Medical History: Cancer, CVA/TIA, Dialysis, GERD/Reflux, Hyperlipidemia, Hypertension, Renal Disease, Seizure Disorder, Sleep Apnea/CPAP/BIPAP, Thyroid Disorder Additional Past Medical History / Comment(s): stage 4, kidney disease,. basal cell removed from left ear. stroke 2013- lost peripheral vision. siezure- with illness( vomiting diarrhea) long ago, one time- no meds.wears cpap History of Any Multi-Drug Resistant Organisms: None Reported Past Surgical History: Cholecystectomy Additional Past Surgical History / Comment(s): cataracts removed, repair fx rt wrist. pituatary adenoma removed. Past Anesthesia/Blood Transfusion Reactions: No Reported Reaction Past Psychological History: Depression Smoking Status: Never smoker Past Alcohol Use History: None Reported Past Drug Use History: None Reported - Past Family History Father Family Medical History: COPD Brother(s) Family Medical History: Cancer Additional Family Medical History / Comment(s): leukemia General Exam Limitations: no limitations General appearance: alert, in no apparent distress Head exam: Present: atraumatic, normocephalic Eye exam: Present: normal appearance, PERRL ENT exam: Present: normal exam Neck exam: Present: normal inspection. Absent: tenderness, meningismus Respiratory exam: Present: normal lung sounds bilaterally. Absent: respiratory distress, wheezes Cardiovascular Exam: Present: regular rate, normal rhythm GI/Abdominal exam: Present: soft. Absent: distended, tenderness, guarding Rectal exam: Present: bloody stool, hemorrhoids (1 small nonbleeding hemorrhoid) Extremities exam: Present: normal inspection Neurological exam: Present: alert, oriented X3, CN II-XII intact. Absent: motor sensory deficit Psychiatric exam: Present: normal affect, normal mood Skin exam: Present: warm, dry, intact. Absent: cyanosis, diaphoretic Course Vital Signs 11/29/24 13:43 Temperature 98.7 F Pulse Rate 70 Respiratory 18 Rate Blood Pressure 165/80 O2 Sat by Pulse 100 Oximetry Medical Decision Making - Medical Decision Making Was pt. sent in by a medical professional or institution (, PA, CHAIR CAR DRIVER, urgent care, hospital, or [facility]...) When possible be specific @ -No Did you speak to anyone other than the patient for history (EMS, parent, family, police, friend...)? What history was obtained from this source @ -No Did you review nursing and triage notes (agree or disagree)? Why? @ -I reviewed and agree with nursing and triage notes Were old charts reviewed (outside hosp., previous admission, EMS record, old EKG, old radiological studies, urgent care reports/EKG's, [facility] records)? Report findings @ -No old charts were reviewed Differential Diagnosis (chest pain, altered mental status, abdominal pain women, abdominal pain men, vaginal bleeding, weakness, fever, dyspnea, syncope, headache, dizziness, GI bleed, back pain, seizure, CVA, palpatations, mental health, musculoskeletal)? @ -Not applicable EKG interpreted by me (3pts min.). @ -Sinus rhythm rate of 65, [place] interval 160, QRS duration 77, QTc 430, no ST segment elevation X-rays interpreted by me (1pt min.). @ -None done CT interpreted by me (1pt min.). @ -None done U/S interpreted by me (1pt. min.). @ -None done What testing was considered but not performed or refused? (CT, X-rays, U/S, labs)? Why? @ -None What meds were considered but not given or refused? Why? @ -None Did you discuss the management of the patient with other professionals (tonya mccormick i.e. , PA, CHAIR CAR DRIVER, lab, RT, psych nurse, criminal justice social worker, district service manager, teacher, biosecurity officer, bottle caser)? Give summary @Case discussed with Dr. Stallworth, will be on consult for lower GI bleed. Patient admitted to Dr. Sierra who is aware Was smoking cessation discussed for >3mins.? @ -No Was critical care preformed (if so, how long)? @ -No Were there social determinants of health that impacted care today? How? (Homelessness, low income, unemployed, alcoholism, drug addiction, transportation, low edu. Level, literacy, decrease access to med. care, prison, rehab)? @ -No Was there de-escalation of care discussed even if they declined (Discuss DNR or withdrawal of care, Hospice)? DNR status @ -No What co-morbidities impacted this encounter? (DM, HTN, Smoking, COPD, CAD, Cancer, CVA, ARF, Chemo, Hep., AIDS, mental health diagnosis, sleep apnea, morbid obesity)? @End-stage renal disease, anemia Was patient admitted / discharged? Hospital course, mention meds given and route, prescriptions, significant lab abnormalities, going to OR and other pertinent info. @ -64-year-old female presenting with several episodes of bright red rectal bleeding. Patient is hemodynamically stable, well-appearing. Hemoglobin is 8.2 she does have chronic anemia however most recent in our system was 10.2. Patient had 1 episode of blood tinged stool in the emergency department. This was low-volume blood. Patient will be admitted to internal medicine with general surgery on consult. Undiagnosed new problem with uncertain prognosis? @ -No Drug Therapy requiring intensive monitoring for toxicity (Heparin, Nitro, Insulin, Cardizem)? @ -No Were any procedures done? @ -No Diagnosis/symptom? @ -[Lower GI bleed, anemia Acute, or Chronic, or Acute on Chronic? @Acute Uncomplicated (without systemic symptoms) or Complicated (systemic symptoms)? @ -Default Side effects of treatment? @ -No Exacerbation, Progression, or Severe Exacerbation? @ -No Poses a threat to life or bodily function? How? (Chest pain, [place], [place], pneumonia, PE, COPD, DKA, ARF, appy, cholecystitis, CVA, Diverticulitis, Homicidal, Suicidal, threat to staff... and all critical care pts) @ -Yes, lower GI bleed, hemorrhagic shock - Lab Data Result diagrams: 11/29/24 15:08 11/29/24 15:08 Lab Results 11/29/24 11/29/24 11/29/24 Range/Units 15:08 15:08 15:08 WBC 7.92 (4.50-10.00) 10*3/uL RBC 3.05 L (4.10-5.20) 10*6/uL Hgb 8.2 L D (12.0-15.0) g/dL Hct 26.1 L (37.2-46.3) % MCV 85.6 (80.0-97.0) fL MCH 26.9 L (27.0-32.0) pg MCHC 31.4 L (32.0-37.0) g/dL Plt Count 174 (140-440) 10*3/uL MPV 9.4 L (9.5-12.2) fL Immature Gran % (Auto) 0.3 % Neutrophils % 70.9 % Lymphocytes % 16.0 % Monocytes % 8.5 % Eosinophils % 3.9 % Basophils % 0.4 % Immature Gran # 0.02 (0.00-0.04) 10*3/uL Neutrophils # 5.62 (1.80-7.70) 10*3/uL Lymphocytes # 1.27 (0.90-5.00) 10*3/uL Monocytes # 0.67 (0.20-1.00) 10*3/uL Eosinophils # 0.31 (0.04-0.35) 10*3/uL Basophils # 0.03 (0.00-0.10) 10*3/uL PT 11.3 (10.0-12.5) sec INR 1.0 (<1.2) APTT 22.3 (22.0-30.0) sec Sodium 141 (137-145) mmol/L Potassium 4.7 (3.5-5.1) mmol/L Chloride 109 H (98-107) mmol/L Carbon Dioxide 19 L (22-30) mmol/L Anion Gap 13 mmol/L BUN 109 H* (7-17) mg/dL Creatinine 4.97 H (0.52-1.04) mg/dL Est GFR (CKD-EPI)AfAm 10 (>60 ml/min/1.73 sqM) Est GFR (CKD-EPI)NonAf 9 (>60 ml/min/1.73 sqM) Glucose 117 H (74-99) mg/dL Calcium 9.4 (8.4-10.2) mg/dL Total Bilirubin 0.2 (0.2-1.3) mg/dL AST 21 (14-36) U/L ALT 16 (4-34) U/L Alkaline Phosphatase 45 (38-126) U/L Total Protein 6.0 L (6.3-8.2) g/dL Albumin 3.8 (3.5-5.0) g/dL Disposition Clinical Impression: Lower GI bleed, Anemia Disposition: ADMITTED IP TO THIS [facility] Condition: Stable Is patient prescribed a controlled substance at d/c from ED?: No Referrals: Roderick Lynn MD [Primary Care Provider] - 1-2 days Time of Disposition: 16:38
[2024-11-29 15:21] LABS: Basophils # (A) 0.03 10*3/uL (0.00-0.10); Basophils % (A) 0.4 %; Eosinophils # (A) 0.31 10*3/uL (0.04-0.35); Eosinophils % (A) 3.9 %; HCT 26.1 % (37.2-46.3); Lymphocytes # (A) 1.27 10*3/uL (0.90-5.00); MCH 26.9 pg (27.0-32.0); MCHC 31.4 g/dL (32.0-37.0); MCV 85.6 fL (80.0-97.0); Mean Platelet Volume 9.4 fL (9.5-12.2); Monocytes # (A) 0.67 10*3/uL (0.20-1.00); Monocytes % (A) 8.5 %; Neutrophils # (A) 5.62 10*3/uL (1.80-7.70); Neutrophils % (A) 70.9 %; Platelet Count 174 10*3/uL (140-440); RBC 3.05 10*6/uL (4.10-5.20); RDW 17.9 % (11.5-14.5); WBC 7.92 10*3/uL (4.50-10.00)
[2024-11-29 15:27] LABS: HGB 8.2 g/dL (12.0-15.0)
[2024-11-29 15:37] LABS: ALT 16 U/L (4-34); AST 21 U/L (14-36); African American GFR (CKD) 10 (>60 ml/min/1.73 sqM); Albumin 3.8 g/dL (3.5-5.0); Alkaline Phosphatase 45 U/L (38-126); Anion Gap 13 mmol/L; Calcium 9.4 mg/dL (8.4-10.2); Carbon Dioxide 19 mmol/L (22-30); Chloride 109 mmol/L (98-107); Glucose 117 mg/dL (74-99); Non-African American GFR(CKD) 9 (>60 ml/min/1.73 sqM); Potassium 4.7 mmol/L (3.5-5.1); Sodium 141 mmol/L (137-145); Total Bilirubin 0.2 mg/dL (0.2-1.3)
[2024-11-29 15:48] LABS: Partial Thromboplastin Time 22.3 sec (22.0-30.0); Prothrombin Time 11.3 sec (10.0-12.5)
[2024-11-29 16:08] LABS: Blood Urea Nitrogen 109 mg/dL (7-17)
[2024-11-29] MEDS ORDERED: NALOXONE 0.4 MG/ML 1 ML VIAL IV PRN (16:33)
[2024-11-29] MEDS: SODIUM CHLORIDE 0.9% 1,000 ML IV SCH (17:57)
[2024-11-29 21:18] LABS: Basophils # (A) 0.04 10*3/uL (0.00-0.10); Basophils % (A) 0.5 %; Eosinophils # (A) 0.34 10*3/uL (0.04-0.35); Eosinophils % (A) 4.1 %; HCT 27.8 % (37.2-46.3); HGB 8.6 g/dL (12.0-15.0); Lymphocytes # (A) 1.27 10*3/uL (0.90-5.00); Lymphocytes % (A) 15.4 %; MCH 26.6 pg (27.0-32.0); MCHC 30.9 g/dL (32.0-37.0); MCV 86.1 fL (80.0-97.0); Mean Platelet Volume 9.9 fL (9.5-12.2); Monocytes # (A) 0.75 10*3/uL (0.20-1.00); Monocytes % (A) 9.1 %; Neutrophils # (A) 5.83 10*3/uL (1.80-7.70); Neutrophils % (A) 70.7 %; Platelet Count 161 10*3/uL (140-440); RBC 3.23 10*6/uL (4.10-5.20); RDW 18.1 % (11.5-14.5); WBC 8.25 10*3/uL (4.50-10.00)
[2024-11-29] MEDS: LEVOTHYROXINE 88 MCG TAB PO SCH (22:33)
[2024-11-29] MEDS: PANTOPRAZOLE 40 MG/10 ML VIAL IVP SCH (22:33)
[2024-11-30 03:37] LABS: Basophils # (A) 0.03 10*3/uL (0.00-0.10); Basophils % (A) 0.4 %; Eosinophils # (A) 0.32 10*3/uL (0.04-0.35); HCT 24.4 % (37.2-46.3); HGB 7.4 g/dL (12.0-15.0); Lymphocytes # (A) 1.36 10*3/uL (0.90-5.00); Lymphocytes % (A) 17.1 %; MCH 26.2 pg (27.0-32.0); MCHC 30.3 g/dL (32.0-37.0); MCV 86.5 fL (80.0-97.0); Mean Platelet Volume 9.6 fL (9.5-12.2); Monocytes # (A) 0.72 10*3/uL (0.20-1.00); Neutrophils # (A) 5.51 10*3/uL (1.80-7.70); Neutrophils % (A) 69.2 %; Platelet Count 166 10*3/uL (140-440); RBC 2.82 10*6/uL (4.10-5.20); WBC 7.96 10*3/uL (4.50-10.00)
[2024-11-30 03:52] LABS: African American GFR (CKD) 11 (>60 ml/min/1.73 sqM); Anion Gap 11 mmol/L; Calcium 9.4 mg/dL (8.4-10.2); Carbon Dioxide 16 mmol/L (22-30); Chloride 111 mmol/L (98-107); Glucose 74 mg/dL (74-99); Non-African American GFR(CKD) 10 (>60 ml/min/1.73 sqM); Potassium 4.9 mmol/L (3.5-5.1); Sodium 138 mmol/L (137-145)
[2024-11-30 04:24] LABS: Blood Urea Nitrogen 109 mg/dL (7-17)
[2024-11-30] MEDS: LEVOTHYROXINE 88 MCG TAB PO SCH (06:03)
--- NOTE | 2024-11-30 09:00 | P.GSCN ---
History of Present Illness Consult date: 11/30/24 Reason for Consult: GI bleed History of present illness: Is a 64-year-old female who is on Plavix. Patient has had episodes of bright red blood per rectum. Patient denies any abdominal pain. Past Medical History Past Medical History: Cancer, CVA/TIA, Dialysis, GERD/Reflux, Hyperlipidemia, Hypertension, Renal Disease, Seizure Disorder, Sleep Apnea/CPAP/BIPAP, Thyroid Disorder Additional Past Medical History / Comment(s): stage 4, kidney disease,. basal cell removed from left ear. stroke 2013- lost peripheral vision. siezure- with illness( vomiting diarrhea) long ago, one time- no meds.wears cpap History of Any Multi-Drug Resistant Organisms: None Reported Past Surgical History: Cholecystectomy Additional Past Surgical History / Comment(s): cataracts removed, repair fx rt wrist. pituatary adenoma removed. Past Anesthesia/Blood Transfusion Reactions: No Reported Reaction Past Psychological History: Depression Smoking Status: Never smoker Past Alcohol Use History: None Reported Past Drug Use History: None Reported - Past Family History Father Family Medical History: COPD Brother(s) Family Medical History: Cancer Additional Family Medical History / Comment(s): leukemia Medications and Allergies Home Medications Medication Instructions Recorded Confirmed Type Atorvastatin [Lipitor] 40 mg PO HS 10/15/24 11/29/24 History Calcium Acetate 667 mg PO W/SUPPER 10/15/24 11/29/24 History Citalopram Hydrobromide 40 mg PO DAILY 10/15/24 11/29/24 History [Citalopram HBr] Clopidogrel Bisulfate [Clopidogrel] 75 mg PO DAILY 10/15/24 11/29/24 History Dialyvite 1 tab PO DAILY 10/15/24 11/29/24 History Ergocalciferol [Vitamin D2 (1250 1,250 mcg PO Q30D 10/15/24 11/29/24 History Mcg = 55386 Iu)] Famotidine 20 mg PO HS PRN 10/15/24 11/29/24 History Febuxostat [Uloric] 40 mg PO DAILY 10/15/24 11/29/24 History Levothyroxine Sodium 88 mcg PO MOTUWETHFRSA 10/15/24 11/29/24 History NIFEdipine [Adalat CC] 30 mg PO BID 10/15/24 11/29/24 History Sodium Bicarbonate Tab 650 mg PO BID 10/15/24 11/29/24 History Sodium Zirconium Cyclosilicate 10 gm PO DAILY 10/15/24 11/29/24 History [Lokelma] calcitrioL 0.25 mcg PO MOFR 10/15/24 11/29/24 History carvediloL [Coreg] 6.25 mg PO BID 10/15/24 11/29/24 History Levothyroxine Sodium [Synthroid] 176 mcg PO BERRIOS 10/18/24 11/29/24 History Vit C/E/Zn/Coppr/Lutein/Zeaxan 1 cap PO BID 10/18/24 11/29/24 History [Preservision Areds 2 Softgel] Ketoconazole 2% Cream [Nizoral 2%] 1 applic TOPICAL DAILY 11/29/24 11/29/24 History Torsemide [Demadex] 40 mg PO DIRECTED 11/29/24 11/29/24 History Allergies Allergy/AdvReac Type Severity Reaction Status Date / Time azathioprine [From Imuran] AdvReac diarrhea, Verified 11/29/24 18:02 wiped her out mycophenolate mofetil AdvReac diarrhea, Verified 11/29/24 18:02 [From CellCept] wiped out Surgical - Exam Vital Signs Temp Pulse Resp BP Pulse Ox 98.7 F 70 18 165/80 100 11/29/24 13:43 11/29/24 13:43 11/29/24 13:43 11/29/24 13:43 11/29/24 13:43 - General well developed, well nourished, no distress - Eyes PERRL - ENT normal pinna - Neck no masses - Respiratory normal expansion - Cardiovascular Rhythm: regular - Abdomen Abdomen: soft, non tender Results - Labs 11/30/24 03:17 11/30/24 03:17 Abnormal Lab Results - Last 24 Hours (Table) 11/29/24 11/29/24 11/29/24 Range/Units 15:08 15:08 21:00 RBC 3.05 L 3.23 L (4.10-5.20) 10*6/uL Hgb 8.2 L D 8.6 L (12.0-15.0) g/dL Hct 26.1 L 27.8 L (37.2-46.3) % MCH 26.9 L 26.6 L (27.0-32.0) pg MCHC 31.4 L 30.9 L (32.0-37.0) g/dL MPV 9.4 L (9.5-12.2) fL Chloride 109 H (98-107) mmol/L Carbon Dioxide 19 L (22-30) mmol/L BUN 109 H* (7-17) mg/dL Creatinine 4.97 H (0.52-1.04) mg/dL Glucose 117 H (74-99) mg/dL Total Protein 6.0 L (6.3-8.2) g/dL 11/30/24 11/30/24 Range/Units 03:17 03:17 RBC 2.82 L (4.10-5.20) 10*6/uL Hgb 7.4 L (12.0-15.0) g/dL Hct 24.4 L (37.2-46.3) % MCH 26.2 L (27.0-32.0) pg MCHC 30.3 L (32.0-37.0) g/dL MPV (9.5-12.2) fL Chloride 111 H (98-107) mmol/L Carbon Dioxide 16 L (22-30) mmol/L BUN 109 H* (7-17) mg/dL Creatinine 4.57 H (0.52-1.04) mg/dL Glucose (74-99) mg/dL Total Protein (6.3-8.2) g/dL Diabetes panel 11/29/24 11/30/24 Range/Units 15:08 03:17 Sodium 141 138 (137-145) mmol/L Potassium 4.7 4.9 (3.5-5.1) mmol/L Chloride 109 H 111 H (98-107) mmol/L Carbon Dioxide 19 L 16 L (22-30) mmol/L BUN 109 H* 109 H* (7-17) mg/dL Creatinine 4.97 H 4.57 H (0.52-1.04) mg/dL Glucose 117 H 74 (74-99) mg/dL Calcium 9.4 9.4 (8.4-10.2) mg/dL AST 21 (14-36) U/L ALT 16 (4-34) U/L Alkaline Phosphatase 45 (38-126) U/L Total Protein 6.0 L (6.3-8.2) g/dL Albumin 3.8 (3.5-5.0) g/dL Calcium panel 11/29/24 11/30/24 Range/Units 15:08 03:17 Calcium 9.4 9.4 (8.4-10.2) mg/dL Albumin 3.8 (3.5-5.0) g/dL Pituitary panel 11/29/24 11/30/24 Range/Units 15:08 03:17 Sodium 141 138 (137-145) mmol/L Potassium 4.7 4.9 (3.5-5.1) mmol/L Chloride 109 H 111 H (98-107) mmol/L Carbon Dioxide 19 L 16 L (22-30) mmol/L BUN 109 H* 109 H* (7-17) mg/dL Creatinine 4.97 H 4.57 H (0.52-1.04) mg/dL Glucose 117 H 74 (74-99) mg/dL Calcium 9.4 9.4 (8.4-10.2) mg/dL Adrenal panel 11/29/24 11/30/24 Range/Units 15:08 03:17 Sodium 141 138 (137-145) mmol/L Potassium 4.7 4.9 (3.5-5.1) mmol/L Chloride 109 H 111 H (98-107) mmol/L Carbon Dioxide 19 L 16 L (22-30) mmol/L BUN 109 H* 109 H* (7-17) mg/dL Creatinine 4.97 H 4.57 H (0.52-1.04) mg/dL Glucose 117 H 74 (74-99) mg/dL Calcium 9.4 9.4 (8.4-10.2) mg/dL Total Bilirubin 0.2 (0.2-1.3) mg/dL AST 21 (14-36) U/L ALT 16 (4-34) U/L Alkaline Phosphatase 45 (38-126) U/L Total Protein 6.0 L (6.3-8.2) g/dL Albumin 3.8 (3.5-5.0) g/dL Assessment and Plan Plan: GI bleed on Plavix. Patient's Plavix has been held. She will be reevaluated by Dr. Martinez in the a.m. for possible colonoscopy.
--- NOTE | 2024-11-30 09:30 | P.HPIM ---
History of Present Illness H&P Date: 11/29/24 Chief Complaint: Rectal bleed 64-year-old female, history of hypertension, hyperlipidemia, hypothyroidism, seizure disorder, ESRD/PD, history of CVA/TIA, presenting for evaluation of bright red rectal bleeding which began yesterday. Patient has had several episodes of both blood and stool with blood. She has no prior reported history of diverticulosis. Denies any known hemorrhoids. Patient is on Plavix. Patient recently had peritoneal dialysis catheter placed and has been started on peritoneal dialysis. She denies pain complaints. Denies fever. Blood work completed in ED reveals WBC of 7.9, hemoglobin of 8.2 which is down from 10.2 from recent lab work, platelet count 174, sodium 141, potassium 4.7, BUN/creatinine of 109/4.97 and blood glucose of 174 Review of Systems REVIEW OF SYSTEMS: CONSTITUTIONAL: No fever, no malaise, no fatigue. HEENT: No recent visual problems or hearing problems. Denied any sore throat. CARDIOVASCULAR: No chest pain, orthopnea, PND, no palpitations, no syncope. PULMONARY: No shortness of breath, no cough, no hemoptysis. GASTROINTESTINAL: No diarrhea, no nausea, no vomiting, no abdominal pain. NEUROLOGICAL: No headaches, no weakness, no numbness. HEMATOLOGICAL: Denies any bleeding or petechiae. GENITOURINARY: Denies any burning micturition, frequency, or urgency. MUSCULOSKELETAL/RHEUMATOLOGICAL: Denies any joint pain, swelling, or any muscle pain. ENDOCRINE: Denies any polyuria or polydipsia. The rest of the 14-point review of systems is negative. Past Medical History Past Medical History: Cancer, CVA/TIA, Dialysis, GERD/Reflux, Hyperlipidemia, Hypertension, Renal Disease, Seizure Disorder, Sleep Apnea/CPAP/BIPAP, Thyroid Disorder Additional Past Medical History / Comment(s): stage 4, kidney disease,. basal cell removed from left ear. stroke 2013- lost peripheral vision. siezure- with illness( vomiting diarrhea) long ago, one time- no meds.wears cpap History of Any Multi-Drug Resistant Organisms: None Reported Past Surgical History: Cholecystectomy Additional Past Surgical History / Comment(s): cataracts removed, repair fx rt wrist. pituatary adenoma removed. Past Anesthesia/Blood Transfusion Reactions: No Reported Reaction Past Psychological History: Depression Smoking Status: Never smoker Past Alcohol Use History: None Reported Past Drug Use History: None Reported - Past Family History Father Family Medical History: COPD Brother(s) Family Medical History: Cancer Additional Family Medical History / Comment(s): leukemia Medications and Allergies Home Medications Medication Instructions Recorded Confirmed Type Atorvastatin [Lipitor] 40 mg PO HS 10/15/24 11/29/24 History Calcium Acetate 667 mg PO W/SUPPER 10/15/24 11/29/24 History Citalopram Hydrobromide 40 mg PO DAILY 10/15/24 11/29/24 History [Citalopram HBr] Clopidogrel Bisulfate [Clopidogrel] 75 mg PO DAILY 10/15/24 11/29/24 History Dialyvite 1 tab PO DAILY 10/15/24 11/29/24 History Ergocalciferol [Vitamin D2 (1250 1,250 mcg PO Q30D 10/15/24 11/29/24 History Mcg = 31435 Iu)] Famotidine 20 mg PO HS PRN 10/15/24 11/29/24 History Febuxostat [Uloric] 40 mg PO DAILY 10/15/24 11/29/24 History Levothyroxine Sodium 88 mcg PO MOTUWETHFRSA 10/15/24 11/29/24 History NIFEdipine [Adalat CC] 30 mg PO BID 10/15/24 11/29/24 History Sodium Bicarbonate Tab 650 mg PO BID 10/15/24 11/29/24 History Sodium Zirconium Cyclosilicate 10 gm PO DAILY 10/15/24 11/29/24 History [Lokelma] calcitrioL 0.25 mcg PO MOFR 10/15/24 11/29/24 History carvediloL [Coreg] 6.25 mg PO BID 10/15/24 11/29/24 History Levothyroxine Sodium [Synthroid] 176 mcg PO BERRIOS 10/18/24 11/29/24 History Vit C/E/Zn/Coppr/Lutein/Zeaxan 1 cap PO BID 10/18/24 11/29/24 History [Preservision Areds 2 Softgel] Ketoconazole 2% Cream [Nizoral 2%] 1 applic TOPICAL DAILY 11/29/24 11/29/24 History Torsemide [Demadex] 40 mg PO DIRECTED 06/21/25 06/21/25 History Allergies Allergy/AdvReac Type Severity Reaction Status Date / Time azathioprine [From Imuran] AdvReac diarrhea, Verified 11/29/24 18:02 wiped her out mycophenolate mofetil AdvReac diarrhea, Verified 11/29/24 18:02 [From CellCept] wiped out Physical Exam Vitals: Vital Signs Temp Pulse Resp BP Pulse Ox 11/29/24 17:52 71 17 141/77 100 11/29/24 13:43 98.7 F 70 18 165/80 100 Intake and Output 11/29/24 11/29/24 11/29/24 06:59 14:59 22:59 Other: Weight 69.4 kg General appearance: alert, in no apparent distress Head exam: Present: atraumatic, normocephalic Eye exam: Present: normal appearance, PERRL ENT exam: Present: normal exam Neck exam: Present: normal inspection. Absent: tenderness, meningismus Respiratory exam: Present: normal lung sounds bilaterally. Absent: respiratory distress, wheezes Cardiovascular Exam: Present: regular rate, normal rhythm GI/Abdominal exam: Present: soft. Absent: distended, tenderness, guarding Rectal exam: Present: bloody stool, hemorrhoids (1 small nonbleeding hemorrhoid) Extremities exam: Present: normal inspection Neurological exam: Present: alert, oriented X3, CN II-XII intact. Absent: motor sensory deficit Psychiatric exam: Present: normal affect, normal mood Skin exam: Present: warm, dry, intact. Absent: cyanosis, diaphoretic Results CBC & Chem 7: 11/30/24 03:17 11/30/24 03:17 Labs: Abnormal Lab Results - Last 24 Hours (Table) 11/29/24 11/29/24 Range/Units 15:08 15:08 RBC 3.05 L (4.10-5.20) 10*6/uL Hgb 8.2 L D (12.0-15.0) g/dL Hct 26.1 L (37.2-46.3) % MCH 26.9 L (27.0-32.0) pg MCHC 31.4 L (32.0-37.0) g/dL MPV 9.4 L (9.5-12.2) fL Chloride 109 H (98-107) mmol/L Carbon Dioxide 19 L (22-30) mmol/L BUN 109 H* (7-17) mg/dL Creatinine 4.97 H (0.52-1.04) mg/dL Glucose 117 H (74-99) mg/dL Total Protein 6.0 L (6.3-8.2) g/dL Assessment and Plan Assessment: 1. Acute rectal bleed; patient on Plavix -Patient reports several episodes at home; blood work reveals hemoglobin of 8.2 which is a drop from 10.2 most recent blood work in our system - Patient did have 1 episode of rectal bleed in the ER - Patient discussed with general surgery and recommended hold Plavix and serial H&H - General Surgery consulted 2. End-stage renal disease/PD; will consult nephrology 3. Hypertension; patient takes Coreg 6.25 mg twice daily along with nifedipine 30 mg twice daily which will be placed on hold given GI bleed and anticipated hypotension; will resume pending clinical course 4. Hyperlipidemia; patient takes Lipitor 40 mg p.o. nightly; patient is currently n.p.o. for GI bleed; hold statin 5. Hypothyroid; continue with home dose of levothyroxine 6. History of CVA/TIA; patient takes Plavix and Lipitor; Plavix held due to GI bleed; will resume Lipitor once oral intake is established DVT prophylaxis; SCDs only given GI bleed CODE STATUS; full code
[2024-11-30 10:49] LABS: Basophils # (A) 0.03 10*3/uL (0.00-0.10); Basophils % (A) 0.5 %; Eosinophils # (A) 0.21 10*3/uL (0.04-0.35); Eosinophils % (A) 3.2 %; HCT 25.6 % (37.2-46.3); HGB 7.7 g/dL (12.0-15.0); Lymphocytes # (A) 0.91 10*3/uL (0.90-5.00); Lymphocytes % (A) 13.8 %; MCH 26.5 pg (27.0-32.0); MCHC 30.1 g/dL (32.0-37.0); Mean Platelet Volume 9.5 fL (9.5-12.2); Monocytes # (A) 0.37 10*3/uL (0.20-1.00); Monocytes % (A) 5.6 %; Neutrophils # (A) 5.05 10*3/uL (1.80-7.70); Neutrophils % (A) 76.7 %; Platelet Count 170 10*3/uL (140-440); RBC 2.91 10*6/uL (4.10-5.20); RDW 18.2 % (11.5-14.5); WBC 6.58 10*3/uL (4.50-10.00)
--- NOTE | 2024-11-30 12:36 | P.NPCON ---
History of Present Illness - Reason for Consult end stage renal disease - History of Present Illness Reason for consultation: End-stage renal disease History of present illness: Patient is a 64-year-old female seen in renal consultation for end-stage renal disease. Patient was seen and examined in the emergency room. Patient is undergoing peritoneal dialysis training currently. She came to the hospital due to bloody bowel movements. Patient states she noticed blood in her bowel movement on Sunday. She had a similar episode on Sunday and came to the hospital for further evaluation. Plavix is being held. She denies use of nonsteroidals. She does make urine. No vomiting. Denies any diarrhea. No history of diabetes or coronary artery disease. She is being followed by surgery and is potentially scheduled for colonoscopy this admission. No chest pain or shortness of breath. No edema. Vital signs are stable. General: No acute distress. HEENT: Head exam is unremarkable. LUNGS: No audible rhonchi or wheezes. HEART: Rate and Rhythm are regular. ABDOMEN: Nontender. EXTREMITITES: No edema. Past Medical History Past Medical History: Cancer, CVA/TIA, Dialysis, GERD/Reflux, Hyperlipidemia, Hypertension, Renal Disease, Seizure Disorder, Sleep Apnea/CPAP/BIPAP, Thyroid Disorder Additional Past Medical History / Comment(s): stage 4, kidney disease,. basal cell removed from left ear. stroke 2013- lost peripheral vision. siezure- with illness( vomiting diarrhea) long ago, one time- no meds.wears cpap History of Any Multi-Drug Resistant Organisms: None Reported Past Surgical History: Cholecystectomy Additional Past Surgical History / Comment(s): cataracts removed, repair fx rt wrist. pituatary adenoma removed. Past Anesthesia/Blood Transfusion Reactions: No Reported Reaction Past Psychological History: Depression Smoking Status: Never smoker Past Alcohol Use History: None Reported Past Drug Use History: None Reported - Past Family History Father Family Medical History: COPD Brother(s) Family Medical History: Cancer Additional Family Medical History / Comment(s): leukemia Medications and Allergies Home Medications Medication Instructions Recorded Confirmed Type Atorvastatin [Lipitor] 40 mg PO HS 10/15/24 11/29/24 History Calcium Acetate 667 mg PO W/SUPPER 10/15/24 11/29/24 History Citalopram Hydrobromide 40 mg PO DAILY 10/15/24 11/29/24 History [Citalopram HBr] Clopidogrel Bisulfate [Clopidogrel] 75 mg PO DAILY 10/15/24 11/29/24 History Dialyvite 1 tab PO DAILY 10/15/24 11/29/24 History Ergocalciferol [Vitamin D2 (1250 1,250 mcg PO Q30D 10/15/24 11/29/24 History Mcg = 62884 Iu)] Famotidine 20 mg PO HS PRN 10/15/24 11/29/24 History Febuxostat [Uloric] 40 mg PO DAILY 10/15/24 11/29/24 History Levothyroxine Sodium 88 mcg PO [id number] 10/15/24 11/29/24 History NIFEdipine [Adalat CC] 30 mg PO BID 10/15/24 11/29/24 History Sodium Bicarbonate Tab 650 mg PO BID 10/15/24 11/29/24 History Sodium Zirconium Cyclosilicate 10 gm PO DAILY 10/15/24 11/29/24 History [Lokelma] calcitrioL 0.25 mcg PO MOFR 10/15/24 11/29/24 History carvediloL [Coreg] 6.25 mg PO BID 10/15/24 11/29/24 History Levothyroxine Sodium [Synthroid] 176 mcg PO BERRIOS 10/18/24 11/29/24 History Vit C/E/Zn/Coppr/Lutein/Zeaxan 1 cap PO BID 10/18/24 11/29/24 History [Preservision Areds 2 Softgel] Ketoconazole 2% Cream [Nizoral 2%] 1 applic TOPICAL DAILY 11/29/24 11/29/24 History Torsemide [Demadex] 40 mg PO DIRECTED 11/29/24 11/29/24 History Allergies Allergy/AdvReac Type Severity Reaction Status Date / Time azathioprine [From Imuran] AdvReac diarrhea, Verified 11/29/24 18:02 wiped her out mycophenolate mofetil AdvReac diarrhea, Verified 11/29/24 18:02 [From CellCept] wiped out Physical Exam Vitals: Vital Signs Temp Pulse Pulse Resp BP BP Pulse Ox 11/30/24 08:00 98.5 F 85 18 172/97 100 11/30/24 03:44 98.1 F 74 16 152/71 99 11/30/24 02:00 72 16 11/29/24 23:50 97.6 F 72 16 151/67 99 11/29/24 20:00 97.7 F 70 18 145/78 100 11/29/24 17:52 71 17 141/77 100 11/29/24 13:43 98.7 F 70 18 165/80 100 Intake and Output 11/29/24 11/30/24 11/30/24 22:59 06:59 14:59 Intake Total 900 Output Total 3 Balance 897 Intake: Intake, IV Titration 900 Amount Sodium Chloride 0.9% 1, 900 000 ml @ 75 mls/hr IV . [id number] [facility]ILY Rx#:[id number] Output: Urine 3 Other: Weight 69.4 kg Results - Lab Results Most recent lab results Calcium 9.4 mg/dL (8.4-10.2) 11/30/24 03:17 11/30/24 10:20 11/30/24 03:17 Assessment and Plan Plan: Assessment: 1. End-stage renal disease maintained on peritoneal dialysis. Currently undergoing PD training outpatient. 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 2. Anemia with concern for GI bleed. Plavix held. Potential colonoscopy this admission. Surgery following. 3. Hypertension with chronic kidney disease. 4. Metabolic acidosis secondary to chronic kidney disease. Plan: Start PD exchanges with 1.5 L every 6 hours with 1.5% dextrose solution. Add oral bicarb. Check iron studies. Add Aranesp. Add torsemide 40 mg daily. Resume home dose nifedipine and torsemide. Thank you for the consultation. I will continue to follow the patient with you during her hospital stay.
[2024-11-30] MEDS: NIFEdipine XL 30 MG TAB.ER.24 PO SCH (13:01)
[2024-11-30] MEDS: TORSEMIDE 20 MG TAB PO SCH (13:01)
[2024-11-30] MEDS: SODIUM BICARBONATE TAB 650 MG TAB PO SCH (13:01)
[2024-11-30] MEDS: DARBEPOETIN ALFA 40 MCG/0.4 ML SYRINGE SQ SCH (15:21)
[2024-11-30] MEDS: hydrALAZINE HCL 20 MG/ML 1 ML VIAL IVP PRN (16:05)
[2024-11-30] MEDS: carvediloL 6.25 MG TAB PO SCH (16:05)
[2024-11-30 20:21] LABS: Basophils # (A) 0.03 10*3/uL (0.00-0.10); Basophils % (A) 0.3 %; Eosinophils # (A) 0.24 10*3/uL (0.04-0.35); Eosinophils % (A) 2.7 %; HCT 32.1 % (37.2-46.3); HGB 10.1 g/dL (12.0-15.0); Lymphocytes # (A) 1.24 10*3/uL (0.90-5.00); MCH 26.8 pg (27.0-32.0); MCHC 31.5 g/dL (32.0-37.0); MCV 85.1 fL (80.0-97.0); Mean Platelet Volume 9.6 fL (9.5-12.2); Monocytes # (A) 0.71 10*3/uL (0.20-1.00); Neutrophils # (A) 6.58 10*3/uL (1.80-7.70); Neutrophils % (A) 74.7 %; Platelet Count 195 10*3/uL (140-440); RBC 3.77 10*6/uL (4.10-5.20); RDW 17.9 % (11.5-14.5); WBC 8.83 10*3/uL (4.50-10.00)
[2024-11-30] MEDS ORDERED: NIFEDIPINE 30 MG PO SCH (21:00)
[2024-11-30] MEDS: ACETAMINOPHEN TAB 325 MG TAB PO PRN (21:37)
[2024-11-30] MEDS: DIALYSIS (PERIT 1.5%) 1,500 ML 22.5 G/1,500 ML BAG INTRAPERIT SCH (22:40)
[2024-12-01 00:23] LABS: % Iron Saturation 27.7 (12.00-45.00)
--- NOTE | 2024-12-01 08:39 | P.PN ---
Subjective 64-year-old female, history of hypertension, hyperlipidemia, hypothyroidism, seizure disorder, ESRD/PD, history of CVA/TIA, presenting for evaluation of bright red rectal bleeding which began yesterday. Patient has had several episodes of both blood and stool with blood. She has no prior reported history of diverticulosis. Denies any known hemorrhoids. Patient is on Plavix. Patient recently had peritoneal dialysis catheter placed and has been started on peritoneal dialysis. She denies pain complaints. Denies fever. Blood work completed in ED reveals WBC of 7.9, hemoglobin of 8.2 which is down from 10.2 from recent lab work, platelet count 174, sodium 141, potassium 4.7, BUN/creatinine of 109/4.97 and blood glucose of 174 12/01 Patient awake alert Still complaining from blood with bowel movement last 1 was 2:00 this morning No abdominal pain or tenderness. At home she was taking Plavix given her history of stroke many years ago. She denies using any extra NSAIDs or pain medication other than Tylenol. No other new complaint. Hemodynamically stable. She is status post 1 unit of blood transfusion and hemoglobin went up yesterday at 10.1. Labs from today still pending. Creatinine 4.5. Followed by nephrology team for end-stage renal disease on peritoneal dialysis Currently on normal saline 75 mL/h Patient has been followed by surgery team for possible colonoscopy today Review of systems CONSTITUTIONAL: No fever, no malaise, no fatigue. HEENT: No recent visual problems or hearing problems. Denied any sore throat. CARDIOVASCULAR: No orthopnea, PND, no palpitations, no syncope. PULMONARY: No shortness of breath, no cough, no hemoptysis. GENITOURINARY: Denies any burning micturition, frequency, or urgency. MUSCULOSKELETAL/RHEUMATOLOGICAL: Denies any joint pain, swelling, or any muscle pain. ENDOCRINE: Denies any polyuria or polydipsia. Active Medications Generic Name Dose Route Start Last Admin Trade Name Freq PRN Reason Stop Dose Admin Acetaminophen 650 mg 11/29/24 16:33 11/30/24 21:37 Acetaminophen Tab 325 Mg Tab PO 650 mg Q6HR PRN Administration Mild Pain or Fever > 100.5 Carvedilol 6.25 mg 11/30/24 15:38 11/30/24 16:05 Carvedilol 6.25 Mg Tab PO 6.25 mg BID-W/MEALS EMILY Administration Darbepoetin Juvencio 40 mcg 11/30/24 14:00 11/30/24 15:21 Darbepoetin Juvencio 40 Mcg/0.4 Ml Syringe SQ 40 mcg Q7D EMILY Administration Hydralazine HCl 20 mg 11/30/24 15:38 11/30/24 16:05 Hydralazine Hcl 20 Mg/Ml 1 Ml Vial IVP 20 mg Q6HR PRN Administration Blood Pressure - High Sodium Chloride 1,000 mls @ 75 mls/hr 11/29/24 16:45 11/30/24 22:41 Saline 0.9% IV Not Given .[id number] [facility] Peritoneal Dialysis Solution 22.5 g in 1,500 mls @ 0 mls/hr 11/30/24 18:00 12/01/24 06:12 Delflex With 1.5% Dextrose (1,500 Ml) INTRAPERIT Not Given Q6HR [facility] Protocol As Directed Levothyroxine Sodium 88 mcg 11/29/24 22:00 12/01/24 06:15 Levothyroxine 88 Mcg Tab PO 88 mcg MoTuWeThFrSa@0600 [facility] Administration Levothyroxine Sodium 176 mcg 11/30/24 06:00 11/30/24 06:03 Levothyroxine 88 Mcg Tab PO 176 mcg Gunter@0600 [facility] Administration Naloxone HCl 0.2 mg 11/29/24 16:33 Naloxone 0.4 Mg/Ml 1 Ml Vial IV Q2M PRN Opioid Reversal Nifedipine 30 mg 11/30/24 12:45 11/30/24 21:32 Nifedipine Xl 30 Mg Tab.Er.24 PO 30 mg Q12HR EMILY Administration Pantoprazole Sodium 40 mg 11/29/24 22:00 11/30/24 21:31 Pantoprazole 40 Mg/10 Ml Vial IVP 40 mg BID EMILY Administration Sodium Bicarbonate 650 mg 11/30/24 12:45 11/30/24 21:31 Sodium Bicarbonate Tab 650 Mg Tab PO 650 mg BID EMILY Administration Torsemide 40 mg 11/30/24 12:45 11/30/24 13:01 Torsemide 20 Mg Tab PO 40 mg DAILY EMILY Administration Objective - Vital Signs Vital signs: Vital Signs Temp 98.6 F 12/01/24 04:00 Pulse 96 12/01/24 08:00 Resp 18 12/01/24 08:00 BP 153/89 12/01/24 08:00 Pulse Ox 99 12/01/24 08:00 FiO2 Intake & Output 11/30/24 12/01/24 12/01/24 18:59 06:59 18:59 Intake Total 1060 400 Balance 1060 400 Intake: Intake, IV Titration 450 Amount Sodium Chloride 0.9% 1, 450 000 ml @ 75 mls/hr IV . [id number] [facility] Rx#:[id number] Oral 300 Blood Product 310 Rc As-1 Unit 310 [id number] Other 400 Other: # Voids 3 2 # Bowel Movements 2 - Exam GENERAL: The patient is alert and oriented x3, not in any acute distress. Well developed, well nourished. HEENT: Pupils are round and equally reacting to light. EOMI. No scleral icterus. No conjunctival pallor. Normocephalic, atraumatic. No pharyngeal erythema. No thyromegaly. CARDIOVASCULAR: S1 and S2 present. No murmurs, rubs, or gallops. PULMONARY: Chest is clear to auscultation, no wheezing , no crackles. ABDOMEN: Soft, nontender, nondistended, normoactive bowel sounds. No palpable organomegaly. MUSCULOSKELETAL: No joint swelling or deformity. EXTREMITIES: No cyanosis, clubbing, or pedal edema. NEUROLOGICAL: Gross neurological examination did not reveal any focal deficits. SKIN: No rashes. no petechiae. - Labs CBC & Chem 7: 11/30/24 19:49 11/30/24 03:17 Labs: Abnormal Lab Results - Last 24 Hours (Table) 11/30/24 11/30/24 11/30/24 Range/Units 10:20 10:20 12:33 RBC 2.91 L (4.10-5.20) 10*6/uL Hgb 7.7 L (12.0-15.0) g/dL Hct 25.6 L (37.2-46.3) % MCH 26.5 L (27.0-32.0) pg MCHC 30.1 L (32.0-37.0) g/dL RDW (11.5-14.5) % TIBC 213 L (228-460) UG/DL Transferrin 152.0 L (204.0-354.0) mg/dL Crossmatch See Detail 11/30/24 Range/Units 19:49 RBC 3.77 L (4.10-5.20) 10*6/uL Hgb 10.1 L (12.0-15.0) g/dL Hct 32.1 L (37.2-46.3) % MCH 26.8 L (27.0-32.0) pg MCHC 31.5 L (32.0-37.0) g/dL RDW 17.9 H (11.5-14.5) % TIBC (228-460) UG/DL Transferrin (204.0-354.0) mg/dL Crossmatch Assessment and Plan Assessment: 1. Acute rectal bleed; patient on Plavix -Patient reports several episodes at home; blood work reveals hemoglobin of 8.2 which is a drop from 10.2 most recent blood work in our system - Patient did have 1 episode of rectal bleed in the ER - Patient discussed with general surgery and recommended hold Plavix and serial H&H - General Surgery consulted 2. End-stage renal disease/PD; will consult nephrology 3. Hypertension; patient takes Coreg 6.25 mg twice daily along with nifedipine 30 mg twice daily which will be placed on hold given GI bleed and anticipated hypotension; will resume pending clinical course 4. Hyperlipidemia; patient takes Lipitor 40 mg p.o. nightly; patient is currently n.p.o. for GI bleed; hold statin 5. Hypothyroid; continue with home dose of levothyroxine 6. History of CVA/TIA; patient takes Plavix and Lipitor; Plavix held due to GI bleed; will resume Lipitor once oral intake is established DVT prophylaxis; SCDs only given GI bleed CODE STATUS; full code
[2024-12-01 10:31] LABS: BUN/Creat Ratio 21.36 Ratio (12.00-20.00); Calcium 8.7 mg/dL (8.7-10.3); Carbon Dioxide 15.6 mmol/L (21.6-31.8); Chloride 110 mmol/L (96-109); Glucose 93 mg/dL (70-110); Potassium 5.2 mmol/L (3.5-5.5); Sodium 140 mmol/L (135-145)
--- NOTE | 2024-12-01 13:11 | P.PN ---
Subjective Progress Note Date: 12/01/24 SURGICAL PROGRESS NOTE CHIEF COMPLAINT: GI bleed HISTORY OF PRESENT ILLNESS: Patient continues to report having bright red blood from rectum every couple of hours. She denies passing any blood clots. Her Plavix is currently on hold. She did report some lower suprapubic abdominal pain. She denies any nausea or vomiting. Last colonoscopy was several years ago. She does report a history of colon polyps. She did receive 1 unit of blood for hemoglobin of 7.7. And repeat hemoglobin is 10.1 for yesterday. CBC for today pending PHYSICAL EXAM: VITAL SIGNS: Reviewed. GENERAL: Well-developed in no acute distress. HEENT: No sclera icterus. Extraocular movements grossly intact. Moist buccal mucosa. Head is atraumatic, normocephalic. ABDOMEN: Soft. Nondistended. Nontender. NEUROLOGIC: Alert and oriented. Cranial nerves II through XII grossly intact. ASSESSMENT: 1. Acute GI bleed with bright red blood per rectum 2. Anemia due to GI bleed status post 1 unit of blood PLAN: - Plan for colonoscopy tomorrow - Start GoLytely bowel prep - Continue clear liquid diet - N.p.o. after midnight - Continue to monitor hemoglobin - Continue monitor for any signs or symptoms of bleeding - Hold Plavix - Check CBC today Physician Warp Knitting Machine Operator note has been reviewed by physician. Signing provider agrees with the documented findings, assessment, and plan of care. I have personally seen and examined the patient, reviewed the CONSUMER LOAN UNDERWRITER /PAs history, exam and MDM and agree with the assessment and plan as written. Based on total visit time, I have performed more than 50% of the visit. As above: Patient with suspected lower GI bleed. Hemoglobin 10.1 yesterday. Will plan upper endoscopy and lower endoscopy tomorrow. Patient is agreeable. Objective - Vital Signs Vital signs: Vital Signs Temp 98.6 F 12/01/24 04:00 Pulse 82 12/01/24 09:05 Resp 16 12/01/24 09:05 BP 151/74 12/01/24 09:05 Pulse Ox 99 12/01/24 08:00 FiO2 Intake & Output 11/30/24 12/01/24 12/01/24 18:59 06:59 18:59 Intake Total 1060 400 Balance 1060 400 Intake: Intake, IV Titration 450 Amount Sodium Chloride 0.9% 1, 450 000 ml @ 75 mls/hr IV . [id number] [facility] Rx#:[id number] Oral 300 Blood Product 310 Rc As-1 Unit 310 [id number] Other 400 Other: # Voids 3 2 # Bowel Movements 2 - Labs CBC & Chem 7: 11/30/24 19:49 12/01/24 06:55 Labs: Abnormal Lab Results - Last 24 Hours (Table) 11/30/24 11/30/24 11/30/24 Range/Units 10:20 10:20 12:33 RBC 2.91 L (4.10-5.20) 10*6/uL Hgb 7.7 L (12.0-15.0) g/dL Hct 25.6 L (37.2-46.3) % MCH 26.5 L (27.0-32.0) pg MCHC 30.1 L (32.0-37.0) g/dL RDW (11.5-14.5) % Chloride (96-109) mmol/L Carbon Dioxide (21.6-31.8) mmol/L Anion Gap (4.00-12.00) mmol/L BUN (9.0-27.0) mg/dL Creatinine (0.6-1.5) mg/dL Est GFR (CKD-EPI) (>=60) BUN/Creatinine Ratio (12.00-20.00) Ratio TIBC 213 L (228-460) UG/DL Transferrin 152.0 L (204.0-354.0) mg/dL Crossmatch See Detail 11/30/24 12/01/24 Range/Units 19:49 06:55 RBC 3.77 L (4.10-5.20) 10*6/uL Hgb 10.1 L (12.0-15.0) g/dL Hct 32.1 L (37.2-46.3) % MCH 26.8 L (27.0-32.0) pg MCHC 31.5 L (32.0-37.0) g/dL RDW 17.9 H (11.5-14.5) % Chloride 110 H (96-109) mmol/L Carbon Dioxide 15.6 L (21.6-31.8) mmol/L Anion Gap 14.40 H (4.00-12.00) mmol/L BUN 94.0 H (9.0-27.0) mg/dL Creatinine 4.4 H (0.6-1.5) mg/dL Est GFR (CKD-EPI) 11 L (>=60) BUN/Creatinine Ratio 21.36 H (12.00-20.00) Ratio TIBC (228-460) UG/DL Transferrin (204.0-354.0) mg/dL Crossmatch
[2024-12-01] MEDS: PEG 3350 (236 GM/BTL) + LYTES 4,000 ML BOTTLE PO ONE (14:11)
[2024-12-01 14:53] LABS: HCT 30.1 % (37.2-46.3); HGB 9.5 g/dL (12.0-15.0); MCH 27.2 pg (27.0-32.0); MCHC 31.6 g/dL (32.0-37.0); MCV 86.2 fL (80.0-97.0); Platelet Count 177 10*3/uL (140-440); RBC 3.49 10*6/uL (4.10-5.20); RDW 18.6 % (11.5-14.5); WBC 8.39 10*3/uL (4.50-10.00)
--- NOTE | 2024-12-01 18:31 | P.PN ---
Subjective Patient is seen for follow-up for end-stage renal disease. She was reluctant to start peritoneal dialysis in the ER and has agreed to start when moved up to the floor. Awaiting colonoscopy. Has had small amounts of bright red blood per rectum Hemoglobin 9.5 g/dL today. No shortness of breath Objective - Vital Signs Vital signs: Vital Signs Temp 98.6 F 12/01/24 04:00 Pulse 79 12/01/24 17:23 Resp 18 12/01/24 17:23 BP 148/82 12/01/24 17:23 Pulse Ox 98 12/01/24 17:23 FiO2 Intake & Output 11/30/24 12/01/24 12/01/24 18:59 06:59 18:59 Intake Total 1060 400 Balance 1060 400 Intake: Intake, IV Titration 450 Amount Sodium Chloride 0.9% 1, 450 000 ml @ 75 mls/hr IV . [id number] [facility] Rx#:[id number] Oral 300 Blood Product 310 Rc As-1 Unit 310 [id number] Other 400 Other: # Voids 3 2 # Bowel Movements 2 - Exam Patient is awake, comfortable, no acute distress Examination of the heart S1 and S2 Examination of the lungs bilateral breath sounds are heard Abdomen is soft nontender Examination of lower extremities shows no evidence of edema PLATE COLORER exam grossly intact - Labs CBC & Chem 7: 12/01/24 14:14 12/01/24 06:55 Labs: Abnormal Lab Results - Last 24 Hours (Table) 11/30/24 11/30/24 12/01/24 Range/Units 12:33 19:49 06:55 RBC 3.77 L (4.10-5.20) 10*6/uL Hgb 10.1 L (12.0-15.0) g/dL Hct 32.1 L (37.2-46.3) % MCH 26.8 L (27.0-32.0) pg MCHC 31.5 L (32.0-37.0) g/dL RDW 17.9 H (11.5-14.5) % Chloride 110 H (96-109) mmol/L Carbon Dioxide 15.6 L (21.6-31.8) mmol/L Anion Gap 14.40 H (4.00-12.00) mmol/L BUN 94.0 H (9.0-27.0) mg/dL Creatinine 4.4 H (0.6-1.5) mg/dL Est GFR (CKD-EPI) 11 L (>=60) BUN/Creatinine Ratio 21.36 H (12.00-20.00) Ratio TIBC 213 L (228-460) UG/DL Transferrin 152.0 L (204.0-354.0) mg/dL 12/01/24 Range/Units 14:14 RBC 3.49 L (4.10-5.20) 10*6/uL Hgb 9.5 L (12.0-15.0) g/dL Hct 30.1 L (37.2-46.3) % MCH (27.0-32.0) pg MCHC 31.6 L (32.0-37.0) g/dL RDW 18.6 H (11.5-14.5) % Chloride (96-109) mmol/L Carbon Dioxide (21.6-31.8) mmol/L Anion Gap (4.00-12.00) mmol/L BUN (9.0-27.0) mg/dL Creatinine (0.6-1.5) mg/dL Est GFR (CKD-EPI) (>=60) BUN/Creatinine Ratio (12.00-20.00) Ratio TIBC (228-460) UG/DL Transferrin (204.0-354.0) mg/dL Assessment and Plan Assessment: 1. End-stage renal disease maintained on peritoneal dialysis. Currently undergoing PD training outpatient. 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 2. Anemia with concern for GI bleed. Plavix held. Awaiting colonoscopy this admission. Surgery following. 3. Hypertension with chronic kidney disease. 4. Metabolic acidosis secondary to chronic kidney disease. Plan: Start peritoneal dialysis exchanges once patient is on the floor. She is reluctant to start in the ER. Continue Aranesp Continue with oral sodium bicarb
[2024-12-02 07:03] LABS: HCT 25.7 % (37.2-46.3); HGB 8.1 g/dL (12.0-15.0); MCH 27.1 pg (27.0-32.0); MCHC 31.5 g/dL (32.0-37.0); Mean Platelet Volume 9.8 fL (9.5-12.2); Platelet Count 153 10*3/uL (140-440); RBC 2.99 10*6/uL (4.10-5.20); RDW 18.5 % (11.5-14.5); WBC 7.71 10*3/uL (4.50-10.00)
[2024-12-02 07:37] LABS: African American GFR (CKD) 12 (>60 ml/min/1.73 sqM); Anion Gap 11 mmol/L; Blood Urea Nitrogen 93 mg/dL (7-17); Calcium 9.2 mg/dL (8.4-10.2); Carbon Dioxide 16 mmol/L (22-30); Chloride 112 mmol/L (98-107); Glucose 91 mg/dL (74-99); Non-African American GFR(CKD) 11 (>60 ml/min/1.73 sqM); Potassium 4.7 mmol/L (3.5-5.1); Sodium 139 mmol/L (137-145)
--- NOTE | 2024-12-02 10:10 | P.PN ---
Subjective 64-year-old female, history of hypertension, hyperlipidemia, hypothyroidism, seizure disorder, ESRD/PD, history of CVA/TIA, presenting for evaluation of bright red rectal bleeding which began yesterday. Patient has had several episodes of both blood and stool with blood. She has no prior reported history of diverticulosis. Denies any known hemorrhoids. Patient is on Plavix. Patient recently had peritoneal dialysis catheter placed and has been started on peritoneal dialysis. She denies pain complaints. Denies fever. Blood work completed in ED reveals WBC of 7.9, hemoglobin of 8.2 which is down from 10.2 from recent lab work, platelet count 174, sodium 141, potassium 4.7, BUN/creatinine of 109/4.97 and blood glucose of 174 12/01 Patient awake alert Still complaining from blood with bowel movement last 1 was 2:00 this morning No abdominal pain or tenderness. At home she was taking Plavix given her history of stroke many years ago. She denies using any extra NSAIDs or pain medication other than Tylenol. No other new complaint. Hemodynamically stable. She is status post 1 unit of blood transfusion and hemoglobin went up yesterday at 10.1. Labs from today still pending. Creatinine 4.5. Followed by nephrology team for end-stage renal disease on peritoneal dialysis Currently on normal saline 75 mL/h Patient has been followed by surgery team for possible colonoscopy today 12/02 Had little bowel movement with little blood this morning, and getting better as per patient Not getting any IV fluids Patient planned to undergo colonoscopy today. Plavix remains on hold. Patient is hoping to be problems and management plan were discussed with the patient and he verbalized understanding and acceptance Patient was hoping to be able to be discharged today Objective - Vital Signs Vital signs: Vital Signs Temp 99.0 F 12/02/24 08:00 Pulse 87 12/02/24 08:00 Resp 16 12/02/24 08:00 BP 127/71 12/02/24 08:00 Pulse Ox 98 12/02/24 08:00 FiO2 Intake & Output 12/01/24 12/02/24 12/02/24 18:59 06:59 18:59 Intake Total 10 Balance 10 Weight 67 kg Intake: IV 10 Invasive Line 1 10 Other: Voiding Method Toilet Toilet CAPD # Voids 2 - Exam GENERAL: The patient is alert and oriented x3, not in any acute distress. Well developed, well nourished. HEENT: Pupils are round and equally reacting to light. EOMI. No scleral icterus. No conjunctival pallor. Normocephalic, atraumatic. No pharyngeal erythema. No thyromegaly. CARDIOVASCULAR: S1 and S2 present. No murmurs, rubs, or gallops. PULMONARY: Chest is clear to auscultation, no wheezing , no crackles. ABDOMEN: Soft, nontender, nondistended, normoactive bowel sounds. No palpable organomegaly. MUSCULOSKELETAL: No joint swelling or deformity. EXTREMITIES: No cyanosis, clubbing, or pedal edema. NEUROLOGICAL: Gross neurological examination did not reveal any focal deficits. SKIN: No rashes. no petechiae. - Labs CBC & Chem 7: 12/02/24 06:28 12/02/24 06:28 Labs: Abnormal Lab Results - Last 24 Hours (Table) 12/01/24 12/01/24 12/02/24 Range/Units 06:55 14:14 06:28 RBC 3.49 L 2.99 L (4.10-5.20) 10*6/uL Hgb 9.5 L 8.1 L (12.0-15.0) g/dL Hct 30.1 L 25.7 L (37.2-46.3) % MCHC 31.6 L 31.5 L (32.0-37.0) g/dL RDW 18.6 H 18.5 H (11.5-14.5) % Chloride 110 H (96-109) mmol/L Carbon Dioxide 15.6 L (21.6-31.8) mmol/L Anion Gap 14.40 H (4.00-12.00) mmol/L BUN 94.0 H (9.0-27.0) mg/dL Creatinine 4.4 H (0.6-1.5) mg/dL Est GFR (CKD-EPI) 11 L (>=60) BUN/Creatinine Ratio 21.36 H (12.00-20.00) Ratio 12/02/24 Range/Units 06:28 RBC (4.10-5.20) 10*6/uL Hgb (12.0-15.0) g/dL Hct (37.2-46.3) % MCHC (32.0-37.0) g/dL RDW (11.5-14.5) % Chloride 112 H (96-109) mmol/L Carbon Dioxide 16 L (21.6-31.8) mmol/L Anion Gap (4.00-12.00) mmol/L BUN 93 H (9.0-27.0) mg/dL Creatinine 4.23 H (0.6-1.5) mg/dL Est GFR (CKD-EPI) (>=60) BUN/Creatinine Ratio (12.00-20.00) Ratio Assessment and Plan Assessment: 1. Acute rectal bleed; patient on Plavix -Patient reports several episodes at home; blood work reveals hemoglobin of 8.2 which is a drop from 10.2 most recent blood work in our system - Patient did have 1 episode of rectal bleed in the ER - Patient discussed with general surgery and recommended hold Plavix and serial H&H - General Surgery consulted 2. End-stage renal disease/PD; will consult nephrology 3. Hypertension; patient takes Coreg 6.25 mg twice daily along with nifedipine 30 mg twice daily which will be placed on hold given GI bleed and anticipated hypotension; will resume pending clinical course 4. Hyperlipidemia; patient takes Lipitor 40 mg p.o. nightly; patient is currently n.p.o. for GI bleed; hold statin 5. Hypothyroid; continue with home dose of levothyroxine 6. History of CVA/TIA; patient takes Plavix and Lipitor; Plavix held due to GI bleed; will resume Lipitor once oral intake is established DVT prophylaxis; SCDs only given GI bleed CODE STATUS; full code
[2024-12-02] MEDS ORDERED: LIDOCAINE 2% (PF) 20 MG/ML 5 ML VIAL ONE (10:56)
[2024-12-02] MEDS ORDERED: PROPOFOL 10 MG/ML 20 ML VIAL IV ONE (10:56)
[2024-12-02] MEDS: LACTATED RINGERS 1,000 ML IV ONE ×2 (10:59→11:38)
--- NOTE | 2024-12-02 11:38 | P.PCN ---
Date of Procedure: 12/02/24 Procedure(s) Performed: PREOPERATIVE DIAGNOSIS: GI bleed POSTOPERATIVE DIAGNOSIS: Mild gastritis, small hiatal hernia, blood-filled colon without abnormalities noted PROCEDURE: 1. EGD with biopsy 2. Colonoscopy ANESTHESIA: MAC SURGEON: Merlin Stallworth M.D. SPECIMENS: Antrum ENDOSCOPIC PROCEDURE: The patient was on the endoscopy table in the left decubitus position. The Olympus gastroscope was inserted into the oropharynx and passed under direct visualization to the region of the third portion of the duodenum. From that point the scope was slowly withdrawn inspecting all surfaces carefully. There were no neoplastic inflammatory or polypoid lesions throughout the duodenum. The pylorus was widely patent. The stomach was carefully inspected. There was mild gastritis present. A biopsy of the antrum took place to rule out H. pylori. Retroflexion revealed a small 1 cm hiatal hernia. No inflammatory changes throughout the esophagus were noted. The patient was kept on the endoscopy table in the left decubitus position. The Olympus colonoscope was inserted into the anus and passed under direct visualization to the base of the cecum. The appendiceal orifice was visualized. I could not intubate the ileum. From that point the scope was slowly withdrawn inspecting all surfaces carefully. There were no neoplastic inflammatory or polypoid lesions throughout the cecum, ascending, transverse, descending, sigmoid and rectum. There was no visible diverticulosis noted. The patient's colon was diffusely filled with a light bloody fluid. Digital rectal examination was normal. The patient was taken to the recovery room in stable condition per anesthesia guidelines. RECOMMENDATIONS: No obvious source of chronic bleeding seen. Some degree of blood was present throughout the entirety of the colon. Will order small bowel capsule endoscopy.
[2024-12-02] MEDS: FERROUS SULFATE 325 MG TAB PO SCH (12:05)
[2024-12-02] MEDS: SIMETHICONE 40 MG/0.6 ML DROPS 2,000 MG/30 ML BOTTLE PO ONE (13:00)
[2024-12-02 19:42] LABS: Basophils # (A) 0.03 10*3/uL (0.00-0.10); Basophils % (A) 0.4 %; Eosinophils # (A) 0.16 10*3/uL (0.04-0.35); Eosinophils % (A) 2.2 %; HCT 26.7 % (37.2-46.3); HGB 8.7 g/dL (12.0-15.0); Lymphocytes # (A) 1.47 10*3/uL (0.90-5.00); Lymphocytes % (A) 20.2 %; MCH 27.4 pg (27.0-32.0); MCHC 32.6 g/dL (32.0-37.0); MCV 84.2 fL (80.0-97.0); Mean Platelet Volume 10.1 fL (9.5-12.2); Monocytes # (A) 0.73 10*3/uL (0.20-1.00); Neutrophils # (A) 4.85 10*3/uL (1.80-7.70); Neutrophils % (A) 66.8 %; Platelet Count 176 10*3/uL (140-440); RBC 3.17 10*6/uL (4.10-5.20); WBC 7.27 10*3/uL (4.50-10.00)
[2024-12-03 10:21] LABS: Basophils % (A) 0.3 %; Eosinophils % (A) 2.5 %; HCT 25.1 % (37.2-46.3); HGB 8.1 g/dL (12.0-15.0); Lymphocytes % (A) 18.7 %; MCH 27.3 pg (27.0-32.0); MCHC 32.3 g/dL (32.0-37.0); MCV 84.5 fL (80.0-97.0); Mean Platelet Volume 9.3 fL (9.5-12.2); Monocytes % (A) 5.9 %; Neutrophils % (A) 72.3 %; Platelet Count 174 10*3/uL (140-440); RBC 2.97 10*6/uL (4.10-5.20); RDW 18.3 % (11.5-14.5); WBC 7.29 10*3/uL (4.50-10.00)
[2024-12-03 10:22] LABS: Basophils # (A) 0.02 10*3/uL (0.00-0.10); Eosinophils # (A) 0.18 10*3/uL (0.04-0.35); Lymphocytes # (A) 1.36 10*3/uL (0.90-5.00); Monocytes # (A) 0.43 10*3/uL (0.20-1.00); Neutrophils # (A) 5.28 10*3/uL (1.80-7.70)
--- NOTE | 2024-12-03 11:28 | P.PN ---
Subjective Progress Note Date: 12/03/24 SURGICAL PROGRESS NOTE CHIEF COMPLAINT: GI bleed HISTORY OF PRESENT ILLNESS: Patient status post EGD and colonoscopy yesterday that reported mild gastritis, small hiatal hernia and blood-filled colon without abnormalities noted. Patient underwent capsule endoscopy. Results are pending. Patient did have a bloody bowel movement this morning. Patient reports this intermittent crampy abdominal pain in the right lower quadrant. Currently pain is gone. Afebrile. Hemoglobin stable at 8.1 PHYSICAL EXAM: VITAL SIGNS: Reviewed. GENERAL: Well-developed in no acute distress. ABDOMEN: Soft. Nondistended. Nontender. NEUROLOGIC: Alert and oriented. Cranial nerves II through XII grossly intact. ASSESSMENT: 1. Acute GI bleed with bright red blood per rectum. Status post EGD and colonoscopy yesterday that reported mild gastritis, small hiatal hernia and blood-filled colon without abnormalities noted 2. Anemia due to GI bleed status post 1 unit of blood PLAN: -Follow-up on capsule endoscopy results -Continue clear liquid diet -Continue to monitor for signs and symptoms of bleeding -Continue to monitor hemoglobin -Hold Plavix -Continue PPI Physician Assignment Editor note has been reviewed by physician. Signing provider agrees with the documented findings, assessment, and plan of care. I have personally seen and examined the patient, reviewed the PARTY PLAN SALES AGENT /PAs history, exam and MDM and agree with the assessment and plan as written. Based on total visit time, I have performed more than 50% of the visit. As above: Patient had some bloody stools this morning. Hemoglobin stable. No lightheadedness. Await capsule endoscopy findings. Continue to hold Plavix. Will give dose of DDAVP. Agree with initiation of dialysis. Objective - Vital Signs Vital signs: Vital Signs Temp 98.0 F 12/03/24 04:00 Pulse 94 12/03/24 08:00 Resp 16 12/03/24 08:00 BP 128/76 12/03/24 08:00 Pulse Ox 100 12/03/24 08:00 FiO2 Intake & Output 12/02/24 12/03/24 12/03/24 18:59 06:59 18:59 Intake Total 700 10 Balance 700 10 Intake: IV 400 10 Invasive Line 1 10 Intake, IV Titration 300 Amount Lactated Ringers 1,000 ml 300 @ 0 mls/hr IV .[facility] ONE Rx#:[id number] Other: Voiding Method Toilet Toilet CAPD # Voids 2 1 # Bowel Movements 1 - Labs CBC & Chem 7: 12/03/24 09:48 12/02/24 06:28 Labs: Abnormal Lab Results - Last 24 Hours (Table) 12/02/24 12/03/24 Range/Units 19:14 09:48 RBC 3.17 L 2.97 L (4.10-5.20) 10*6/uL Hgb 8.7 L 8.1 L (12.0-15.0) g/dL Hct 26.7 L 25.1 L (37.2-46.3) % MPV 9.3 L (9.5-12.2) fL
--- NOTE | 2024-12-03 12:57 | P.PN ---
Subjective Patient is seen for follow-up for end-stage renal disease. She was reluctant to start peritoneal dialysis in the Hospital but has agreed now. status post EGD and colonoscopy on 12/02/2024 with no evidence of active bleeding however there was blood noted throughout the colon. Status post capsule endoscopy Hemoglobin 8.1 today No shortness of breath Objective - Vital Signs Vital signs: Vital Signs Temp 98.0 F 12/03/24 04:00 Pulse 67 12/03/24 12:43 Resp 16 12/03/24 12:43 BP 137/77 12/03/24 12:43 Pulse Ox 99 12/03/24 12:43 FiO2 Intake & Output 12/02/24 12/03/24 12/03/24 18:59 06:59 18:59 Intake Total 700 10 Balance 700 10 Intake: IV 400 10 Invasive Line 1 10 Intake, IV Titration 300 Amount Lactated Ringers 1,000 ml 300 @ 0 mls/hr IV .[facility] ONE Rx#:[id number] Other: Voiding Method Toilet Toilet CAPD # Voids 2 1 # Bowel Movements 1 - Exam Patient is awake, comfortable, no acute distress Examination of the heart S1 and S2 Examination of the lungs bilateral breath sounds are heard Abdomen is soft nontender Examination of lower extremities shows no evidence of edema STORE SALES CONSULTANT exam grossly intact - Labs CBC & Chem 7: 12/03/24 09:48 12/02/24 06:28 Labs: Abnormal Lab Results - Last 24 Hours (Table) 12/02/24 12/03/24 Range/Units 19:14 09:48 RBC 3.17 L 2.97 L (4.10-5.20) 10*6/uL Hgb 8.7 L 8.1 L (12.0-15.0) g/dL Hct 26.7 L 25.1 L (37.2-46.3) % MPV 9.3 L (9.5-12.2) fL Assessment and Plan Assessment: 1. End-stage renal disease maintained on peritoneal dialysis. Undergoing PD training prior to admission. 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 Patient was reluctant to start PD you during her hospitalization however she has agreed now. 2. Anemia with concern for GI bleed. Plavix held. Awaiting colonoscopy this admission. Surgery following. 3. Hypertension with chronic kidney disease. 4. Metabolic acidosis secondary to chronic kidney disease. Plan: Start peritoneal dialysis exchanges. Patient has agreed. DDAVP 1 Continue Aranesp Continue with oral sodium bicarb
--- NOTE | 2024-12-03 13:55 | P.CONS ---
History of Present Illness - Reason for Consult Consult date: 12/03/24 Small bowel capsule endoscopy, lower GI bleed Requesting physician: Merlin Stallworth - Chief Complaint Rectal bleeding - History of Present Illness This a pleasant 64-year-old female who was admitted to the hospital 4 days ago with complaints of rectal bleeding which she had started last week Sunday. 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 General Surgery was consulted for GI bleed yesterday she underwent upper endoscopy and colonoscopy with findings of mild gastritis on the upper endoscopy and normal-appearing colon with noted blood present throughout the entire colon. Gastroenterology was consulted for small bowel capsule endoscopy. Patient had small bowel capsule endoscopy yesterday afternoon. Study was completed through the night however was not noting complete study as the camera had stayed in the stomach. Multiple areas of gastritis. She continues to have some bright red blood per rectum, had 2 episodes today with bowel movements. No abdominal pain nausea or vomiting. Hemoglobin 8.1 hematocrit 25 platelet count 174,000 Review of Systems REVIEW OF SYSTEMS: CARDIOPULMONARY: No chest pain or shortness of breath. Gastrointestinal: No Abdominal pain. No nausea or vomiting. No hematemesis, coffee-ground emesis. Bright red blood per rectum with bowel movements. GENITOURINARY: No dysuria or hematuria. On peritoneal dialysis. MUSCULOSKELETAL: Reports normal range of motion., Joint pain. SKIN: No rashes. No jaundice. ENDOCRINE: No chills, fevers. No excessive weight gain or loss. No polydipsia or polyuria. PSYCHIATRIC: Unremarkable. NEUROLOGY: No change in mental status. Denies dizziness, headache. ENT: Vision unremarkable. CONSTITUTIONAL: No recent weight loss. No fever, chills, night sweats. Past Medical History Past Medical History: Cancer, CVA/TIA, Dialysis, GERD/Reflux, Hyperlipidemia, Hypertension, Renal Disease, Seizure Disorder, Sleep Apnea/CPAP/BIPAP, Thyroid Disorder Additional Past Medical History / Comment(s): stage 4, kidney disease,. basal cell removed from left ear. stroke 2013- lost peripheral vision. siezure- with illness( vomiting diarrhea) long ago, one time- no meds.wears cpap History of Any Multi-Drug Resistant Organisms: None Reported Past Surgical History: Cholecystectomy Additional Past Surgical History / Comment(s): cataracts removed, repair fx rt wrist. pituatary adenoma removed. Past Anesthesia/Blood Transfusion Reactions: No Reported Reaction Past Psychological History: Depression Smoking Status: Never smoker Past Alcohol Use History: None Reported Past Drug Use History: None Reported - Past Family History Father Family Medical History: COPD Brother(s) Family Medical History: Cancer Additional Family Medical History / Comment(s): leukemia Medications and Allergies Home Medications Medication Instructions Recorded Confirmed Type Atorvastatin [Lipitor] 40 mg PO HS 10/15/24 11/29/24 History Calcium Acetate 667 mg PO W/SUPPER 10/15/24 11/29/24 History Citalopram Hydrobromide 40 mg PO DAILY 10/15/24 11/29/24 History [Citalopram HBr] Clopidogrel Bisulfate [Clopidogrel] 75 mg PO DAILY 10/15/24 11/29/24 History Dialyvite 1 tab PO DAILY 10/15/24 11/29/24 History Ergocalciferol [Vitamin D2 (1250 1,250 mcg PO Q30D 10/15/24 11/29/24 History Mcg = 53394 Iu)] Famotidine 20 mg PO HS PRN 10/15/24 11/29/24 History Febuxostat [Uloric] 40 mg PO DAILY 10/15/24 11/29/24 History Levothyroxine Sodium 88 mcg PO MOTUWETHFRSA 10/15/24 11/29/24 History NIFEdipine [Adalat CC] 30 mg PO BID 10/15/24 11/29/24 History Sodium Bicarbonate Tab 650 mg PO BID 10/15/24 11/29/24 History Sodium Zirconium Cyclosilicate 10 gm PO DAILY 10/15/24 11/29/24 History [Lokelma] calcitrioL 0.25 mcg PO MOFR 10/15/24 11/29/24 History carvediloL [Coreg] 6.25 mg PO BID 10/15/24 11/29/24 History Levothyroxine Sodium [Synthroid] 176 mcg PO BERRIOS 10/18/24 11/29/24 History Vit C/E/Zn/Coppr/Lutein/Zeaxan 1 cap PO BID 10/18/24 11/29/24 History [Preservision Areds 2 Softgel] Ketoconazole 2% Cream [Nizoral 2%] 1 applic TOPICAL DAILY 11/29/24 11/29/24 History Torsemide [Demadex] 40 mg PO DIRECTED 11/29/24 11/29/24 History Allergies Allergy/AdvReac Type Severity Reaction Status Date / Time azathioprine [From Imuran] AdvReac diarrhea, Verified 11/29/24 18:02 wiped her out mycophenolate mofetil AdvReac diarrhea, Verified 11/29/24 18:02 [From CellCept] wiped out Physical Exam Vitals: Vital Signs Temp Pulse Resp BP Pulse Ox 12/03/24 08:00 94 16 128/76 100 12/03/24 04:00 98.0 F 16 151/74 99 12/03/24 00:00 78 16 119/70 98 12/02/24 20:00 97.8 F 72 18 154/81 100 12/02/24 15:39 98.1 F 78 16 152/82 100 12/02/24 14:00 80 16 Intake and Output 12/02/24 12/03/24 12/03/24 22:59 06:59 14:59 Intake Total 10 Balance 10 Intake: IV 10 Invasive Line 1 10 Other: Voiding Method Toilet Toilet # Voids 1 1 # Bowel Movements 1 1 General appearance: The patient is alert, oriented, appears in no acute distress. HET: Head is normocephalic and atraumatic. Conjunctiva pink. Sclera anicteric. Neck: Supple without lymphadenopathy. Trachea midline. Heart: Regular. Lungs: Equal expansion, normal respiratory effort. Abdomen: Soft, nontender, nondistended. Skin: No rashes. No jaundice. Extremities: Normal skin color and turgor. No pedal edema. Neurological: No focal deficits. Alert and oriented x3. Results CBC & Chem 7: 12/03/24 09:48 12/02/24 06:28 Labs: Abnormal Lab Results - Last 24 Hours (Table) 12/02/24 12/03/24 Range/Units 19:14 09:48 RBC 3.17 L 2.97 L (4.10-5.20) 10*6/uL Hgb 8.7 L 8.1 L (12.0-15.0) g/dL Hct 26.7 L 25.1 L (37.2-46.3) % MPV 9.3 L (9.5-12.2) fL Assessment and Plan (1) GI bleed Narrative/Plan: 64-year-old female presenting with bright red blood mixed with her stool since last week Sunday. She was evaluated by general surgery had upper endoscopy and colonoscopy with upper endoscopy noting gastritis and colonoscopy within normal colon however had blood throughout the colon. Small bowel capsule endoscopy study was completed however was incomplete study and sat in the stomach but did show some gastritis and previous biopsy. Unclear etiology of rectal bleeding. Recommend tagged RBC scan. With further recommendations forthcoming. Patient given DDAVP per general surgery. Patient is hemodynamically stable. Current Visit: Yes Status: Acute Code(s): K92.2 - GASTROINTESTINAL HEMORRHAGE, UNSPECIFIED SNOMED Code(s): 11570744 (2) Anemia Current Visit: Yes Status: Acute Code(s): D64.9 - ANEMIA, UNSPECIFIED SNOMED Code(s): 308924660 (3) Chronic renal failure Current Visit: Yes Status: Acute Code(s): N18.9 - CHRONIC KIDNEY DISEASE, UNSPECIFIED SNOMED Code(s): 90170368 Plan: 1. Continue symptomatic and supportive care 2. Daily CBC, transfuse for hemoglobin less than 7 3. Continue to hold Plavix 4. Tagged RBC ordered 5. Small bowel capsule endoscopy reviewed, incomplete study 6. Patient is status post upper endoscopy and colonoscopy 7. Continue with recommendations from nephrology 8. Continue with recommendations from general surgery 9. Further recommendations forthcoming based on clinical course Thank you for this consultation, we will continue to follow. Dr. Kam Bruno I agree with the dictator's note, documented as a scribe by Dinah Cervantes.
[2024-12-03] MEDS: DESMOPRESSIN ACETATE 4 MCG/ML VIAL (MDV) SQ SCH (14:39)
--- NOTE | 2024-12-03 19:22 | NM ---
EXAMINATION TYPE: NM GI bleeding DATE OF EXAM: 12/03/2024 CLINICAL INDICATION: Female, 64 years old with history of GI bleed; COMPARISON: NONE Following administration of 3 ml PYP 19.6 mCi Tc 99m Sodium Pertechnete. Immediate images post inject ion. FINDINGS: Normal radiotracer is present within vascular structures. No pooling of radiotracer is evident. No mo vement of atypical radiotracer accumulation identified. There is normal distribution within the liver and spleen. Images extend into the second hour. IMPRESSION: 1. No suspicious changes to suggest acute bleeding during the time of this examination. [facility], , 12/03/2024 7:20 PM
[2024-12-03] MEDS: CITALOPRAM HYDROBROMIDE 20 MG TAB PO SCH (20:14)
[2024-12-03] MEDS: DESMOPRESSIN ACETATE 20 MCG in SODIUM CHLORIDE 0.9% 50 ML IVPB ONE (20:15)
[2024-12-03 22:42] VITALS: TEMP 98.1
--- NOTE | 2024-12-04 00:43 | P.PN ---
Subjective 64-year-old female, history of hypertension, hyperlipidemia, hypothyroidism, seizure disorder, ESRD/PD, history of CVA/TIA, presenting for evaluation of bright red rectal bleeding which began yesterday. Patient has had several episodes of both blood and stool with blood. She has no prior reported history of diverticulosis. Denies any known hemorrhoids. Patient is on Plavix. Patient recently had peritoneal dialysis catheter placed and has been started on peritoneal dialysis. She denies pain complaints. Denies fever. Blood work completed in ED reveals WBC of 7.9, hemoglobin of 8.2 which is down from 10.2 from recent lab work, platelet count 174, sodium 141, potassium 4.7, BUN/creatinine of 109/4.97 and blood glucose of 174 12/01 Patient awake alert Still complaining from blood with bowel movement last 1 was 2:00 this morning No abdominal pain or tenderness. At home she was taking Plavix given her history of stroke many years ago. She denies using any extra NSAIDs or pain medication other than Tylenol. No other new complaint. Hemodynamically stable. She is status post 1 unit of blood transfusion and hemoglobin went up yesterday at 10.1. Labs from today still pending. Creatinine 4.5. Followed by nephrology team for end-stage renal disease on peritoneal dialysis Currently on normal saline 75 mL/h Patient has been followed by surgery team for possible colonoscopy today 12/02 Had little bowel movement with little blood this morning, and getting better as per patient Not getting any IV fluids Patient planned to undergo colonoscopy today. Plavix remains on hold. Patient is hoping to be problems and management plan were discussed with the patient and he verbalized understanding and acceptance Patient was hoping to be able to be discharged today 12/03 Patient sitting in chair looks comfortable she has very little bowel movement this morning with very little blood which looks improvement No abdominal pain Hemoglobin stable vitals are stable Patient is status post colonoscopy and EGD has yesterday which were unremarkable Today GI team consulted for capsule endoscopy, nuclear scan showing no evidence of GI bleed Plavix remains on hold Objective - Vital Signs Vital signs: Vital Signs Temp 98.0 F 12/03/24 04:00 Pulse 67 12/03/24 12:43 Resp 16 12/03/24 12:43 BP 137/77 12/03/24 12:43 Pulse Ox 99 12/03/24 12:43 FiO2 Intake & Output 12/02/24 12/03/24 12/03/24 18:59 06:59 18:59 Intake Total 700 10 240 Balance 700 10 240 Intake: IV 400 10 Invasive Line 1 10 Intake, IV Titration 300 Amount Lactated Ringers 1,000 ml 300 @ 0 mls/hr IV .[facility] ONE Rx#:[id number] Oral 240 Other: Voiding Method Toilet Toilet CAPD # Voids 2 1 # Bowel Movements 1 - Exam GENERAL: The patient is alert and oriented x3, not in any acute distress. Well developed, well nourished. HEENT: Pupils are round and equally reacting to light. EOMI. No scleral icterus. No conjunctival pallor. Normocephalic, atraumatic. No pharyngeal erythema. No thyromegaly. CARDIOVASCULAR: S1 and S2 present. No murmurs, rubs, or gallops. PULMONARY: Chest is clear to auscultation, no wheezing , no crackles. ABDOMEN: Soft, nontender, nondistended, normoactive bowel sounds. No palpable organomegaly. MUSCULOSKELETAL: No joint swelling or deformity. EXTREMITIES: No cyanosis, clubbing, or pedal edema. NEUROLOGICAL: Gross neurological examination did not reveal any focal deficits. SKIN: No rashes. no petechiae. - Labs CBC & Chem 7: 12/03/24 09:48 12/02/24 06:28 Labs: Abnormal Lab Results - Last 24 Hours (Table) 12/02/24 12/03/24 Range/Units 19:14 09:48 RBC 3.17 L 2.97 L (4.10-5.20) 10*6/uL Hgb 8.7 L 8.1 L (12.0-15.0) g/dL Hct 26.7 L 25.1 L (37.2-46.3) % MPV 9.3 L (9.5-12.2) fL Assessment and Plan Assessment: 1. Acute rectal bleed; patient on Plavix -Patient reports several episodes at home; blood work reveals hemoglobin of 8.2 which is a drop from 10.2 most recent blood work in our system - Patient did have 1 episode of rectal bleed in the ER - Patient discussed with general surgery and recommended hold Plavix and serial H&H - General Surgery consulted -Capsule endoscopy pending 2. End-stage renal disease/PD; will consult nephrology 3. Hypertension; patient takes Coreg 6.25 mg twice daily along with nifedipine 30 mg twice daily which will be placed on hold given GI bleed and anticipated hypotension; will resume pending clinical course 4. Hyperlipidemia; patient takes Lipitor 40 mg p.o. nightly; patient is currently n.p.o. for GI bleed; hold statin 5. Hypothyroid; continue with home dose of levothyroxine 6. History of CVA/TIA; patient takes Plavix and Lipitor; Plavix held due to GI bleed; will resume Lipitor once oral intake is established DVT prophylaxis; SCDs only given GI bleed CODE STATUS; full code
[2024-12-04 08:17] LABS: HCT 24.6 % (37.2-46.3); HGB 7.4 g/dL (12.0-15.0); MCH 26.5 pg (27.0-32.0); MCHC 30.1 g/dL (32.0-37.0); MCV 88.2 fL (80.0-97.0); Mean Platelet Volume 9.8 fL (9.5-12.2); Platelet Count 172 10*3/uL (140-440); RBC 2.79 10*6/uL (4.10-5.20); RDW 18.3 % (11.5-14.5); WBC 10.11 10*3/uL (4.50-10.00)
[2024-12-04 11:31] VITALS: RESP 17
[2024-12-04] MEDS: FERROUS SULFATE 325 MG TAB PO SCH (11:48)
--- NOTE | 2024-12-04 12:50 | P.PN ---
Subjective Patient is seen for follow-up for end-stage renal disease. She was reluctant to start peritoneal dialysis in the Hospital but has agreed now. However the adapter was not available last night since patient has the [facility] system. status post EGD and colonoscopy on 12/02/2024 with no evidence of active bleeding however there was blood noted throughout the colon. Status post capsule endoscopy. Nuclear scan did not show active bleeding Hemoglobin dropped to 7.4 today No shortness of breath Objective - Vital Signs Vital signs: Vital Signs Temp 98.1 F 12/04/24 07:56 Pulse 72 12/04/24 11:30 Resp 17 12/04/24 11:30 BP 140/81 12/04/24 11:30 Pulse Ox 100 12/04/24 11:30 FiO2 Intake & Output 12/03/24 12/04/24 12/04/24 18:59 06:59 18:59 Intake Total 240 10 240 Balance 240 10 240 Weight 65.1 kg Intake: IV 10 Invasive Line 1 10 Oral 240 240 Other: Voiding Method Toilet Toilet # Voids 1 # Bowel Movements 1 - Exam Patient is awake, comfortable, no acute distress Examination of the heart S1 and S2 Examination of the lungs bilateral breath sounds are heard Abdomen is soft nontender Examination of lower extremities shows no evidence of edema SENIOR VALIDATION ENGINEER exam grossly intact - Labs CBC & Chem 7: 12/04/24 08:01 12/02/24 06:28 Labs: Abnormal Lab Results - Last 24 Hours (Table) 12/04/24 Range/Units 08:01 WBC 10.11 H (4.50-10.00) 10*3/uL RBC 2.79 L (4.10-5.20) 10*6/uL Hgb 7.4 L (12.0-15.0) g/dL Hct 24.6 L (37.2-46.3) % MCH 26.5 L (27.0-32.0) pg MCHC 30.1 L (32.0-37.0) g/dL Assessment and Plan Assessment: 1. End-stage renal disease maintained on peritoneal dialysis. Undergoing PD training prior to admission. 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 Patient was reluctant to start PD you during her hospitalization however she has agreed now. Awaiting adapter to switch from the [facility] system. 2. Anemia with concern for GI bleed. Plavix held. Awaiting colonoscopy this admission. Surgery following. 3. Hypertension with chronic kidney disease. 4. Metabolic acidosis secondary to chronic kidney disease. Plan: Start peritoneal dialysis exchanges. Patient has agreed. Continue Aranesp Continue with oral sodium bicarb
--- NOTE | 2024-12-04 12:50 | P.PN ---
Subjective Progress Note Date: 12/04/24 Principal diagnosis: GI bleed This a pleasant 64-year-old female who was admitted to the hospital 4 days ago with complaints of rectal bleeding which she had started last week Sunday. 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 General Surgery was consulted for GI bleed yesterday she underwent upper endoscopy and colonoscopy with findings of mild gastritis on the upper endoscopy and normal-appearing colon with noted blood present throughout the entire colon. Gastroenterology was consulted for small bowel capsule endoscopy. Patient had small bowel capsule endoscopy yesterday afternoon. Study was completed through the night however was not noting complete study as the camera had stayed in the stomach. Multiple areas of gastritis. She continues to have some bright red blood per rectum, had 2 episodes today with bowel movements. No abdominal pain nausea or vomiting. Hemoglobin 8.1 hematocrit 25 platelet count 174,000 12/04/2024 Patient seen and examined today as a follow-up. She underwent tagged RBC scan yesterday which was negative for any acute bleed during the scan. Patient states she has not had any further bowel movements or rectal bleeding since yesterday afternoon. She denies any abdominal pain nausea or vomiting. Patient is hungry and would like to eat. Hemoglobin with a drop to 7.4 from 8.1. Patient is afebrile, hemodynamically stable. Objective - Vital Signs Vital signs: Vital Signs Temp 98.1 F 12/04/24 07:56 Pulse 84 12/04/24 07:56 Resp 16 12/04/24 07:56 BP 151/83 12/04/24 07:56 Pulse Ox 99 12/04/24 07:56 FiO2 Intake & Output 12/03/24 12/04/24 12/04/24 18:59 06:59 18:59 Intake Total 240 10 Balance 240 10 Weight 65.1 kg Intake: IV 10 Invasive Line 1 10 Oral 240 Other: Voiding Method Toilet Toilet # Voids 1 # Bowel Movements 1 - Exam General appearance: The patient is alert, oriented, appears in no acute distress. HET: Head is normocephalic and atraumatic. Conjunctiva pink. Sclera anicteric. Neck: Supple without lymphadenopathy. Abdomen: Soft, nontender, nondistended. Extremities: Normal skin color and turgor. No pedal edema Skin: No rashes, no jaundice Neurological: No focal deficits. Alert and oriented. - Labs CBC & Chem 7: 12/04/24 08:01 12/02/24 06:28 Labs: Abnormal Lab Results - Last 24 Hours (Table) 12/03/24 12/04/24 Range/Units 09:48 08:01 WBC 10.11 H (4.50-10.00) 10*3/uL RBC 2.97 L 2.79 L (4.10-5.20) 10*6/uL Hgb 8.1 L 7.4 L (12.0-15.0) g/dL Hct 25.1 L 24.6 L (37.2-46.3) % MCH 26.5 L (27.0-32.0) pg MCHC 30.1 L (32.0-37.0) g/dL MPV 9.3 L (9.5-12.2) fL Assessment and Plan (1) GI bleed Narrative/Plan: 64-year-old female presenting with bright red blood mixed with her stool since last week Sunday. She was evaluated by general surgery had upper endoscopy and colonoscopy with upper endoscopy noting gastritis and colonoscopy within normal colon however had blood throughout the colon. Small bowel capsule endoscopy study was completed however was incomplete study and sat in the stomach but did show some gastritis and previous biopsy. Unclear etiology of rectal bleeding. Recommend tagged RBC scan. With further recommendations forthcoming. Patient given DDAVP per general surgery. Patient is hemodynamically stable. Tagged RBC scan without any active bleeding noted. Possible diverticular bleed that has resolved. No further bleeding noted at this time. Will advance diet and monitor for further bleeding. Current Visit: Yes Status: Acute Code(s): K92.2 - GASTROINTESTINAL HEMORRHAGE, UNSPECIFIED SNOMED Code(s): 52847873 (2) Anemia Current Visit: Yes Status: Acute Code(s): D64.9 - ANEMIA, UNSPECIFIED SNOMED Code(s): 156600441 (3) Chronic renal failure Current Visit: Yes Status: Acute Code(s): N18.9 - CHRONIC KIDNEY DISEASE, UNSPECIFIED SNOMED Code(s): 85937498 Plan: 1. Continue symptomatic and supportive care 2. Daily CBC, transfuse for hemoglobin less than 7 3. Continue to hold Plavix 4. Tagged RBC ordered and reviewed 5. Small bowel capsule endoscopy reviewed, incomplete study 6. Patient is status post upper endoscopy and colonoscopy 7. Continue with recommendations from nephrology 8. Continue with recommendations from general surgery 9. May advance diet 10. Continue to monitor for signs of GI bleed Thank you for this consultation, likely discharge in the morning if no further bleeding. Dr. Kam Bruno I agree with the dictator's note, documented as a scribe by Dinah Cervantes.
--- NOTE | 2024-12-04 13:45 | P.PN ---
Subjective Progress Note Date: 12/04/24 SURGICAL PROGRESS NOTE CHIEF COMPLAINT: GI bleed HISTORY OF PRESENT ILLNESS: Patient status post EGD and colonoscopy yesterday that reported mild gastritis, small hiatal hernia and blood-filled colon without abnormalities noted. Patient underwent capsule endoscopy. Study not completed due to camera staying in the stomach. Patient had tagged RBC scan which was negative for any acute bleeding. Patient reports having had 2 bloody bowel movements yesterday prior to the tagged RBC scan. Since then she has had no further bowel movements and no bleeding. Hemoglobin today is down from 8.1-7.4. She denies any abdominal pain. PHYSICAL EXAM: VITAL SIGNS: Reviewed. GENERAL: Well-developed in no acute distress. ABDOMEN: Soft. Nondistended. Nontender. NEUROLOGIC: Alert and oriented. Cranial nerves II through XII grossly intact. ASSESSMENT: 1. Acute GI bleed with bright red blood per rectum. Status post EGD and colonoscopy yesterday that reported mild gastritis, small hiatal hernia and bl ood-filled colon without abnormalities noted. Capsule endoscopy was indeterminate. Tagged RBC scan negative. 2. Anemia due to GI bleed status post 1 unit of blood PLAN: -Follow-up on repeat hemoglobin this afternoon -Agree with renal diet -Continue to hold Plavix -Continue to monitor for signs and symptoms of bleeding -Continue to monitor hemoglobin -Continue PPI Physician Die Fitter note has been reviewed by physician. Signing provider agrees with the documented findings, assessment, and plan of care. I have personally seen and examined the patient, reviewed the SLICING MACHINE FEEDER /PAs history, exam and MDM and agree with the assessment and plan as written. Based on total visit time, I have performed more than 50% of the visit. As above: Patient seen at the bedside with Dr. Montes De Oca and there as well. No further bleeding overnight. Hemoglobin relatively stable. Patient is extremely anxious to go home. Tolerating diet. No lightheadedness. May discharge from our point of view. Patient has an appointment next week with her neurologist who was managing her Plavix. Discussed possibly holding off on resuming Plavix until she sees them to see if this is still required. May resume low-dose a spirin tomorrow. Follow-up with myself as needed. Objective - Vital Signs Vital signs: Vital Signs Temp 98.1 F 12/04/24 07:56 Pulse 72 12/04/24 11:30 Resp 17 12/04/24 11:30 BP 140/81 12/04/24 11:30 Pulse Ox 100 12/04/24 11:30 FiO2 Intake & Output 12/03/24 12/04/24 12/04/24 18:59 06:59 18:59 Intake Total 240 10 240 Balance 240 10 240 Weight 65.1 kg Intake: IV 10 Invasive Line 1 10 Oral 240 240 Other: Voiding Method Toilet Toilet # Voids 1 # Bowel Movements 1 - Labs CBC & Chem 7: 12/04/24 14:27 12/02/24 06:28 Labs: Abnormal Lab Results - Last 24 Hours (Table) 12/04/24 Range/Units 08:01 WBC 10.11 H (4.50-10.00) 10*3/uL RBC 2.79 L (4.10-5.20) 10*6/uL Hgb 7.4 L (12.0-15.0) g/dL Hct 24.6 L (37.2-46.3) % MCH 26.5 L (27.0-32.0) pg MCHC 30.1 L (32.0-37.0) g/dL
[2024-12-04 14:27] VITALS: BMI 25.4
[2024-12-04 15:04] LABS: HCT 24.1 % (37.2-46.3); HGB 7.7 g/dL (12.0-15.0); MCH 27.3 pg (27.0-32.0); MCV 85.5 fL (80.0-97.0); Mean Platelet Volume 9.6 fL (9.5-12.2); Platelet Count 196 10*3/uL (140-440); RBC 2.82 10*6/uL (4.10-5.20); RDW 18.3 % (11.5-14.5); WBC 10.25 10*3/uL (4.50-10.00)
[2024-12-04 15:36] VITALS: BP 162/79; PULSE 78
== END 2024-12-04 18:03 | disposition home or self-care (01) | DRG 377 ==
LOC: EC 13:36 → 3SCARD 16:35 → 4SSUR 11-30 16:25 → 3SCARD 12-01 23:15
PROVIDERS: ADMIT Hospitalist; ATTEND Hospitalist
PROC: 0DB78ZX Excision of Stomach, Pylorus, Via Natural or Artificial Opening Endoscopic, Diagnostic (ICD-10-PCS; principal; 2024-12-02 07:55)
PROC: 0DJD8ZZ Inspection of Lower Intestinal Tract, Via Natural or Artificial Opening Endoscopic (ICD-10-PCS; 2024-12-02 12:40)
DX: K29.71 Gastritis, unspecified, with bleeding (principal); N18.6 End stage renal disease; E87.20 Acidosis, unspecified; I12.0 Hypertensive chronic kidney disease with stage 5 chronic kidney disease or end stage renal disease; Z99.2 Dependence on renal dialysis; G40.909 Epilepsy, unspecified, not intractable, without status epilepticus; F32.A Depression, unspecified; E03.9 Hypothyroidism, unspecified; D50.0 Iron deficiency anemia secondary to blood loss (chronic); K44.9 Diaphragmatic hernia without obstruction or gangrene; Z79.02 Long term (current) use of antithrombotics/antiplatelets; Z79.899 Other long term (current) drug therapy; Z79.890 Hormone replacement therapy; E78.5 Hyperlipidemia, unspecified; Z86.0100 Personal history of colon polyps, unspecified; Z86.73 Personal history of transient ischemic attack (TIA), and cerebral infarction without residual deficits; Z88.8 Allergy status to other drugs, medicaments and biological substances; Z90.49 Acquired absence of other specified parts of digestive tract
CPT/HCPCS: 36415; 36430; 43239; 45378; 78278; 80048; 80053; 82728; 83540; 83550; 85025; 85027; 85610; 85730; 86850; 86900; 86901; 86920; 88305; 91110; 93005; 96361; 96372; 96374; 96375; 96376; 99285